=== PATIENT | male | born 1955 | race Caucasian/White ===

== ENCOUNTER 2019-01-25 13:29 | Inpatient (IN) ==
[2019-01-25 14:15] LABS: Basophils % 0.2 %; Hematocrit 50.3 % (37.5-50.1); Hemoglobin 15.6 g/dL (12.9-16.9); Immature Granulocytes % 0.9 % (0-4); Lymphocytes # 0.7 K/mcL (0.6-4.6); Lymphocytes % 5.8 %; Mean Corpuscular Hemoglobin 28.9 pg (28.0-33.3); Mean Corpuscular Volume 93.1 fL (83.0-100.0); Mean Platelet Volume 10.1 fL (9.4-12.4); Monocytes # 0.5 K/mcL (0.0-1.3); Monocytes % 4.3 %; Neutrophils # 11.1 K/mcL (1.6-8.9); Platelet Count 138 K/mcL (140-400); Red Cell Distribution Width 17.1 % (11.5-14.5); Segmented Neutrophils % 88.8 %; White Blood Count 12.5 K/mcL (4.3-11.1)
[2019-01-25] MEDS: 0.9 % Sodium Chloride 1,000 ML IVC SCH ×2 (14:45→16:33)
[2019-01-25] MEDS ORDERED: Isovue-370 500 ML BOTTLE IVP ONE ×2 (14:48→16:02)
[2019-01-25 14:51] LABS: Alanine Aminotransferase 7 Units/L (7-52); Albumin/Globulin Ratio 1.4 (1.1-2.2); Alkaline Phosphatase 42 Units/L (34-104); Aspartate Amino Transferase 12 Units/L (13-39); Bilirubin,Direct 0.1 mg/dL (0.0-0.2); Bilirubin,Indirect 0.5 mg/dL (0.0-1.2); Bilirubin,Total 0.6 mg/dL (0.3-1.0); Globulin 2.9 g/dL (2.4-3.5); Lipase 15 Units/L (11-82); Total Protein 6.9 g/dL (6.4-8.9)
[2019-01-25] MEDS ORDERED: Piperacillin/Tazobactam 3.375 GM in Water for inj. (sterile) 20 ML IVP ONE (14:54)
--- NOTE | 2019-01-25 14:54 | Emergency Department Note ---
Disposition Clinical Impression: Abdominal pain Qualifiers: Abdominal location: generalized Qualified Code(s): R10.84 - Generalized abdominal pain Sepsis Qualifiers: Sepsis type: sepsis due to unspecified organism Qualified Code(s): A41.9 - Sepsis, unspecified organism Disposition: Still a Patient Condition: Fair Referrals: KirstenmarinaUriel [Primary Care Provider] - Time of Disposition: 14:55 General Adult HPI - General Chief complaint: ED Abdominal Pain Stated complaint: ABD pain Time Seen by Provider: 01/25/19 13:45 Source: patient Limitations: no limitations Nursing Notes Reviewed: Yes Vital Signs Reviewed: Yes - History of Present Illness HPI Narrative: Attestation note I examined this patient and my medical decision-making was reviewed with the Resident Physician/PLANNING ADVISOR/PA. I agree with the documented findings, disposition and treatment plan as described except to the extent set forth below Patient seen with emergency medicine resident Dr. BRAVO SIMON, please see copy of his note for details of this patient encounter Briefly 63-year-old male is on testosterone for weight loss comes in with approximately 1 month of lower abdominal and leg pain and redness patient has a obvious cellulitis of his right lower extremity which was circumscribed marker he also has abdominal pain in the lower abdominal quadrants left and right lower some guarding but no rebound issue inspection of the perineum does not show any obvious Yunior's gangrene. Patient will get abdominal pelvic CT scan of the abdomen and pelvis along with the deep tissues of the bilateral thighs and lower extremities to rule out deep tissue infection gas necrotizing fasciitis and her clots. Patient will also get a Doppler of his right lower extremity. He did meet sepsis criteria he was febrile at 11.5 tachycardic at 114 and hypotensive 96/61 however after 2 L normal saline he responded quickly to 120/66 and his pulse rates down to 106. Patient getting screening labs blood cultures urine cultures regardless of the results in with a mandate transfer patient will be admitted for at the minimum cellulitis with systemic signs and symptoms #2 sepsis. Providing 45 minutes critical care service for this patient. Disposition pending. Patient will be getting an IV dose after cultures vancomycin and Zosyn Pain Scale: 9 - Related Data Allergies Allergy/AdvReac Type Severity Reaction Status Date / Time nicotine [From Nicoderm CQ] AdvReac See Verified 01/25/19 13:42 Comments oxycodone [From Percocet] AdvReac Hives Verified 01/25/19 13:42 Past Medical History - Past Medical History Medical history: Reports: other Psychiatric history: Reports: no psych history - Social History Smoking Status: Current every day smoker Smokeless Tobacco Status: No Alcohol use: Reports: none Drug use: Reports: none Physical Exam - General Limitations: no limitations General appearance: alert, in distress Course Vital Signs Temperature 101.8 F H 01/25/19 13:35 Pulse Rate 114 01/25/19 13:35 Respiratory Rate 18 01/25/19 13:35 Blood Pressure 96/61 01/25/19 13:35 O2 Sat by Pulse Oximetry 96 01/25/19 13:35 Temperature 101.8 F H 01/25/19 14:13 Pulse Rate 106 01/25/19 14:13 Respiratory Rate 18 01/25/19 13:35 Blood Pressure 120/66 01/25/19 14:13 O2 Sat by Pulse Oximetry 96 01/25/19 14:13 Oxygen Delivery Oxygen Delivery Room Air Medical Decision Making - Lab Data Result diagrams: 01/25/19 13:56 Lab Results 01/25/19 01/25/19 Range/Units 13:56 13:56 WBC 12.5 H (4.3-11.1) K/mcL RBC 5.40 (4.19-5.50) M/mcL Hgb 15.6 (12.9-16.9) g/dL Hct 50.3 H (37.5-50.1) % MCV 93.1 (83.0-100.0) fL MCH 28.9 (28.0-33.3) pg MCHC 31.0 L (31.6-35.5) g/dL RDW 17.1 H (11.5-14.5) % Plt Count 138 L (140-400) K/mcL MPV 10.1 (9.4-12.4) fL Immature Gran % 0.9 (0-4) % Seg Neutrophils % 88.8 % Lymphocytes % 5.8 % Monocytes % 4.3 % Eosinophils % 0.0 % Basophils % 0.2 % Neutrophils # 11.1 H (1.6-8.9) K/mcL Lymphocytes # 0.7 (0.6-4.6) K/mcL Monocytes # 0.5 (0.0-1.3) K/mcL Eosinophils # 0.0 (0.0-0.6) K/mcL Basophils # 0.0 (0.0-0.2) K/mcL Total Bilirubin 0.6 (0.3-1.0) mg/dL Direct Bilirubin 0.1 (0.0-0.2) mg/dL Indirect Bilirubin 0.5 (0.0-1.2) mg/dL AST 12 L (13-39) Units/L ALT 7 (7-52) Units/L Alkaline Phosphatase 42 (34-104) Units/L Serum Total Protein 6.9 (6.4-8.9) g/dL Albumin 4.0 (3.5-5.7) g/dL Globulin 2.9 (2.4-3.5) g/dL Albumin/Globulin Ratio 1.4 (1.1-2.2) Lipase 15 (11-82) Units/L
[2019-01-25] MEDS ORDERED: 0.9 % Sodium Chloride 1,000 ML IVC ONE (15:44)
--- NOTE | 2019-01-25 15:45 | Emergency Department Note ---
Disposition Clinical Impression: Abdominal pain Qualifiers: Abdominal location: generalized Qualified Code(s): R10.84 - Generalized abdominal pain Sepsis Qualifiers: Sepsis type: sepsis due to unspecified organism Qualified Code(s): A41.9 - Sepsis, unspecified organism Cellulitis Qualifiers: Site of cellulitis: extremity Site of cellulitis of extremity: lower extremity Laterality: right Qualified Code(s): L03.115 - Cellulitis of right lower limb Disposition: Still a Patient Condition: Fair Referrals: Uriel Gutiérrez [Primary Care Provider] - Forms: ED Satisfaction Letter, Work/School Release Time of Disposition: 16:28 General Adult HPI - General Chief complaint: ED Abdominal Pain Stated complaint: ABD pain Time Seen by Provider: 01/25/19 13:45 Source: patient Mode of arrival: ambulatory Limitations: no limitations Nursing Notes Reviewed: Yes Vital Signs Reviewed: Yes - History of Present Illness HPI Narrative: Patient is a 63-year-old male with a past medical history of Klinefelter's Syndrome, AAA, DDD PORFIRIO, bipolar manic depressive disorder, and smoking presents to the ED for evaluation of right thigh and abdominal pain. Patient states that the lower leg pain has been going on over the past month but is acutely worse today he states he is also having pain in his lower abdomen that is aching severe pain. He states his right thigh pain is sharp and stabbing like and worse with movement or any pressure on the leg. He has stockings on which he states he uses for bilateral lower extremity swelling. Denies fevers or chills. Denies recent injury to the lower leg. Denies numbness. Pain Scale: 9 - Related Data Home Medications Medication Instructions Recorded Confirmed Cyclobenzaprine [Flexeril] 10 mg PO HS PRN 01/25/19 01/25/19 Divalproex (12 HR) [Depakote (12 500 mg PO BID 01/25/19 01/25/19 HR)] Lisinopril [Zestril] 10 mg PO DAILY 01/25/19 01/25/19 Simvastatin [Zocor] 40 mg PO HS 01/25/19 01/25/19 Testosterone Cypionate 60 mg IM Q14D 01/25/19 01/25/19 [Depo-Testosterone] Allergies Allergy/AdvReac Type Severity Reaction Status Date / Time [facility] Adv[facility]ac See Verified 01/25/19 13:42 Comments oxycodone [From Percocet] AdvReac Hives Verified 01/25/19 13:42 All systems ED: reviewed and negative except as stated. Review of Systems: As Per HPI Constitutional: Denies: fever, chills Cardiovascular: Denies: chest pain, palpitations, dyspnea on exertion Respiratory: Denies: cough, dyspnea, wheezes Gastrointestinal: Reports: abdominal pain. Denies: nausea, vomiting, diarrhea, constipation, hematemesis, melena, hematochezia Genitourinary: Denies: urgency, dysuria Musculoskeletal: Reports: myalgia. Denies: back pain, neck pain Integumentary: Denies: rash Neurological: Denies: headache, weakness, numbness Past Medical History - Past Medical History Attestation: Yes The following information was validated with the patient. Medical history: Reports: other Psychiatric history: Reports: bipolar - Social History Smoking Status: Current every day smoker Smokeless Tobacco Status: No Alcohol use: Reports: none Drug use: Reports: none Physical Exam - General Limitations: no limitations General appearance: alert, in distress - Head Head exam: atraumatic, normocephalic, normal inspection - Eye Eye exam: Present: normal appearance, PERRL, EOMI - ENT ENT exam: normal exam, normal oropharynx, mucous membranes dry - Neck Neck exam: Present: normal inspection, full ROM, trachea midline - Chest Chest inspection: Present: normal inspection, symmetric chest wall rise - Respiratory Respiratory exam: Present: normal lung sounds bilaterally. Absent: respiratory distress, wheezes - Cardiovascular Cardiovascular exam: Present: normal rhythm, tachycardia, normal heart sounds, +S1, +S2 - Abdominal Exam Abdominal exam: Present: soft, Non-Tender. Absent: tenderness, distention, guarding, rebound, rigidity - Extremities Exam Extremities exam: Present: full ROM, normal capillary refill, pedal edema (Bilateral 2+), other (tenderness in the right posterior thigh) - Back Exam Back exam: Present: normal inspection, full ROM. Absent: tenderness, CVA tenderness (R), CVA tenderness (L) - Neurological Exam Neurological exam: Present: alert, oriented X3 - Psychiatric Psychiatric exam: Present: normal affect, normal mood - Skin Skin exam: Present: warm, intact, erythema (of the RLE affecting the top of the [place] circumferentially to the ankle. Warm to touch. No induration, fluctuance or obvious drainage. ) Course Course Narrative: Patient is meeting criteria for SIRS on arrival with tachycardia as well as a fever. Cultures were ordered. The patient is with multiple complaints including right posterior thigh tenderness with palpation as well as obvious erythema encompassing the entire lower leg on the right side. He has edema bilaterally however he did have compression stockings on states that this is typical edema for him. He is somewhat of a poor historian states that his symptoms been going on for the past month however there acutely worse today. Concern at this time is for blood clot versus cellulitis versus deep soft tissue infection. Patient received IV fluids new be started on IV antibiotics including Zosyn and vancomycin. He will undergo CAT scan imaging of the abdomen and right lower extremity to evaluate for etiology for further cause of an infectious source. - Reevaluation(s) Reevaluation #1: Patient's labs reveal leukocytosis of 12.5. His lactic acid is 2.4. His ordered an additional liter of fluids. D-dimer was also elevated at 5488. His right lower extremity ultrasound for DVT was negative. Given this d-dimer elevation and his tachycardia he will undergo a CTA of the chest in combination with his CT of the abdomen, pelvis and right lower extremity with contrast. Patient is declining any medication for pain at this time. Time: 16:28 Vital Signs Temperature 101.8 F H 01/25/19 13:35 Pulse Rate 114 01/25/19 13:35 Respiratory Rate 18 01/25/19 13:35 Blood Pressure 96/61 01/25/19 13:35 O2 Sat by Pulse Oximetry 96 01/25/19 13:35 Temperature 101.8 F H 01/25/19 14:13 Pulse Rate 106 01/25/19 14:13 Respiratory Rate 18 01/25/19 13:35 Blood Pressure 120/66 01/25/19 14:13 O2 Sat by Pulse Oximetry 96 01/25/19 14:13 Oxygen Delivery Oxygen Delivery Room Air Medical Decision Making - Medical Records Medical records reviewed: Yes I reviewed the patient's medical records. - Lab Data Lab results reviewed: Yes I reviewed the patient's lab results. Result diagrams: 01/25/19 13:56 01/25/19 13:56 Lab Results 01/25/19 01/25/19 01/25/19 Range/Units 13:56 13:56 13:56 WBC 12.5 H (4.3-11.1) K/mcL RBC 5.40 (4.19-5.50) M/mcL Hgb 15.6 (12.9-16.9) g/dL Hct 50.3 H (37.5-50.1) % MCV 93.1 (83.0-100.0) fL MCH 28.9 (28.0-33.3) pg MCHC 31.0 L (31.6-35.5) g/dL RDW 17.1 H (11.5-14.5) % Plt Count 138 L (140-400) K/mcL MPV 10.1 (9.4-12.4) fL Immature Gran % 0.9 (0-4) % Seg Neutrophils % 88.8 % Lymphocytes % 5.8 % Monocytes % 4.3 % Eosinophils % 0.0 % Basophils % 0.2 % Neutrophils # 11.1 H (1.6-8.9) K/mcL Lymphocytes # 0.7 (0.6-4.6) K/mcL Monocytes # 0.5 (0.0-1.3) K/mcL Eosinophils # 0.0 (0.0-0.6) K/mcL Basophils # 0.0 (0.0-0.2) K/mcL D-Dimer (0-500) ng/mLFEU Sodium 138 (136-145) mEq/L Potassium 3.7 (3.5-5.1) mEq/L Chloride 103 (98-107) mEq/L Carbon Dioxide 25 (23-29) mEq/L BUN 18 (8-23) mg/dL Creatinine 0.81 (0.70-1.30) mg/dL Est GFR ( Amer) > 60 (> 60) Est GFR (Non-Af Amer) > 60 (> 60) BUN/Creatinine Ratio 22 (6-26) Glucose 98 (70-105) mg/dL Calculated Osmolality 288 (280-300) Lactic Acid 2.4 H (0.5-2.2) mmol/L Calcium 9.0 (8.6-10.3) mg/dL Total Bilirubin 0.6 (0.3-1.0) mg/dL Direct Bilirubin 0.1 (0.0-0.2) mg/dL Indirect Bilirubin 0.5 (0.0-1.2) mg/dL AST 12 L (13-39) Units/L ALT 7 (7-52) Units/L Alkaline Phosphatase 42 (34-104) Units/L Troponin I < 0.03 (< 0.04) ng/mL Serum Total Protein 6.9 (6.4-8.9) g/dL Albumin 4.0 (3.5-5.7) g/dL Globulin 2.9 (2.4-3.5) g/dL Albumin/Globulin Ratio 1.4 (1.1-2.2) Lipase 15 (11-82) Units/L 01/25/19 Range/Units 13:56 WBC (4.3-11.1) K/mcL RBC (4.19-5.50) M/mcL Hgb (12.9-16.9) g/dL Hct (37.5-50.1) % MCV (83.0-100.0) fL MCH (28.0-33.3) pg MCHC (31.6-35.5) g/dL RDW (11.5-14.5) % Plt Count (140-400) K/mcL MPV (9.4-12.4) fL Immature Gran % (0-4) % Seg Neutrophils % % Lymphocytes % % Monocytes % % Eosinophils % % Basophils % % Neutrophils # (1.6-8.9) K/mcL Lymphocytes # (0.6-4.6) K/mcL Monocytes # (0.0-1.3) K/mcL Eosinophils # (0.0-0.6) K/mcL Basophils # (0.0-0.2) K/mcL D-Dimer 5488 H (0-500) ng/mLFEU Sodium (136-145) mEq/L Potassium (3.5-5.1) mEq/L Chloride (98-107) mEq/L Carbon Dioxide (23-29) mEq/L BUN (8-23) mg/dL Creatinine (0.70-1.30) mg/dL Est GFR ( Amer) (> 60) Est GFR (Non-Af Amer) (> 60) BUN/Creatinine Ratio (6-26) Glucose (70-105) mg/dL Calculated Osmolality (280-300) Lactic Acid (0.5-2.2) mmol/L Calcium (8.6-10.3) mg/dL Total Bilirubin (0.3-1.0) mg/dL Direct Bilirubin (0.0-0.2) mg/dL Indirect Bilirubin (0.0-1.2) mg/dL AST (13-39) Units/L ALT (7-52) Units/L Alkaline Phosphatase (34-104) Units/L Troponin I (< 0.04) ng/mL Serum Total Protein (6.4-8.9) g/dL Albumin (3.5-5.7) g/dL Globulin (2.4-3.5) g/dL Albumin/Globulin Ratio (1.1-2.2) Lipase (11-82) Units/L - Radiology Data Radiology results reviewed: Yes I reviewed the patient's radiology results. Chest X-Ray 01/25/19 13:49 IMPRESSION: No acute cardiopulmonary findings. D/ / Keisha Gordon MD / Keisha Gordon MD Interpreting Provider: Keisha Gordon MD S.B.A.R. - S.B.A.R. Situation: Demographics, MOA Background: Presenting Complaint, Relevant PMH, Meds, & Allergies Assessment: Vital Signs, Course and respsone to treatment, Exam Concerns, Patient/Family Expectation, Pertinant Lab Results, Outstanding Labs Recommendation: Barrier(s) to disposition (Pending CT scan of the abdomen, and RLE), Recommendation based on pending studies, treatments, or consults S.B.A.R. Report Given to: Dr. Stewart and Dr. Eisenberg S.B.A.Payton Repor Time: 17:09
[2019-01-25 16:30] LABS: BUN/Creatinine Ratio 22 (6-26); Blood Urea Nitrogen 18 mg/dL (8-23); Carbon Dioxide 25 mEq/L (23-29); Chloride 103 mEq/L (98-107); Glucose 98 mg/dL (70-105); Osmolality,Calculated 288 (280-300); Potassium 3.7 mEq/L (3.5-5.1); Sodium 138 mEq/L (136-145); eGFR For African Americans > 60 (> 60); eGFR For Non-African Americans > 60 (> 60)
[2019-01-25 16:31] LABS: Troponin I < 0.03 ng/mL (< 0.04)
[2019-01-25 17:30] LABS: Bilirubin,Urine Negative (Negative); Blood,Urine Negative (Negative); Clarity,Urine Clear (Clear); Color,Urine Yellow (Yellow); Glucose,Urine (UA) Normal (Normal); Ketones,Urine Trace mg/dL (Negative); Leukocyte Esterase,Urine Trace (Negative); Nitrite,Urine Negative (Negative); Protein,Urine Negative (Neg-Trace); Specific Gravity,Urine 1.022 (1.010-1.025); Urobilinogen,Urine Normal (Normal)
[2019-01-25 17:32] LABS: Bacteria,Urine None Seen per hpf (None-Few); Hyaline Casts,Urine None Seen per lpf (None-Few); RBC,Urine 0-3 per hpf (0-3); Squamous Epithelial Cell,Urine Moderate per lpf (None-Few); WBC,Urine 0-3 per hpf (0-3)
--- NOTE | 2019-01-25 17:32 | Internal Med History&Physical ---
Date of Encounter: 01/25/19 Time of Encounter: 17:30 Internal Medicine - H&P: HPI Chief complaint: Cellulitis Admitted From: Emergency Dept History of present illness: Ketan Whitman is a 63 M w hx Klinefelter's Syndrome, AAA, DDD, PORFIRIO, bipolar disorder, smoker, who presents with leg pain. Pain is in R foot, leg, and thigh, and radiates up into abdomen. Pt states his legs are always red, but states they have elli discoloration but are never bright red. Pt usually wears compression stockings for chronic swelling and has not seen his legs in a few days, but says that in the last few days he has noticed that his RLE has become more uncomfortable. Today, he noticed cramping and more intense pain, and they looked at his leg and it had significant erythema on ankle going up to knee with some dependent redness behind the knee and distal posterior thigh. He denies fevers until today. States he has not had infection in his legs like this before and they are concerned that it could be a blood clot. In the ED, vitals T 102, HR 110s, SBP 90s. Labs show WBC 13, Plt 140, lactate 2.4. D-dimer 5500 for which venous duplex of RLE prelim is negative, and CTPE obtained which was negative. CT of RLE shows soft tissue swelling and edema but no fluid collections, although there is reactive inguinal lymphadenopathy. CT abd unremarkable for acute process but does show AAA 5.2 x 4.6 cm. Blood cultures drawn, pt given doses of vanc and zosyn, given NS 2L bolus, and admitted. Past medical, surgical, social, and family histories reviewed and updated as below, with addition to family history of no known infectious history or history of DVT/PEs or thrombophilias. Past Med Surg Social Fam HX - Past Medical History Medical history: other Additional medical history: AAA, DDD Psychiatric history: bipolar - Past Surgical History Additional surgical history: back sx - Social History Smoking Status: Current every day smoker Smokeless Tobacco Status: No Alcohol use: none Drug use: none Internal Medicine - H&P: Meds Cyclobenzaprine [Flexeril] 10 mg PO HS PRN 01/25/19 [History] Divalproex (12 HR) [Depakote (12 HR)] 500 mg PO BID 01/25/19 [History] Lisinopril [Zestril] 10 mg PO DAILY 01/25/19 [History] Simvastatin [Zocor] 40 mg PO HS 01/25/19 [History] Testosterone Cypionate [Depo-Testosterone] 60 mg IM Q14D 01/25/19 [History] Allergy/AdvReac Type Severity Reaction Status Date / Time nicotine [From Nicoderm CQ] AdvReac See Verified 01/25/19 13:42 Comments oxycodone [From Percocet] AdvReac Hives Verified 01/25/19 13:42 All Systems PM: A 10-system review of systems was performed and is negative for pertinent findings except as documented above in the HPI. - Constitutional Vitals: Temp Pulse Resp BP Pulse Ox 101.8 F H 106 18 120/66 96 01/25/19 14:13 01/25/19 14:13 01/25/19 13:35 01/25/19 14:13 01/25/19 14:13 Exam: General: AAOx3, good eye contact, not in distress and nontoxic but diaphoretic and uncomfortable appearing Head: Atraumatic, normocephalic. Face symmetric Eyes: EOMI, sclerae anicteric ENT: Mucous membranes moist. Normal oral mucosa. Trachea midline. Thoracic: No visible chest wall deformities. Normal breath sounds b/l, no wheezing or crackles Cardio: Normal S1 and S2, regular rate and rhythm, no murmurs. Abdomen: Soft, nontender, nondistended, obese Extremities: Warm, well perfused. DP pulses 2+ b/l. Bilateral pitting edema R>L Skin: erythema and warmth tracking RLE from ankle to posterior distal thigh Neuro: Awake, fully oriented. Good memory, concentration, attention. Speech fluent. CN II-XII grossly intact. Strength 5/5 in b/l UE and LE Internal Med - H&P Results - Labs CBC & Chem 7: 01/25/19 13:56 01/25/19 13:56 Labs: Short CBC 01/25/19 Range/Units 13:56 WBC 12.5 H (4.3-11.1) K/mcL Hgb 15.6 (12.9-16.9) g/dL Hct 50.3 H (37.5-50.1) % Plt Count 138 L (140-400) K/mcL Neutrophils # 11.1 H (1.6-8.9) K/mcL BMP 01/25/19 13:56 Sodium 138 Potassium 3.7 Chloride 103 Carbon Dioxide 25 BUN 18 Creatinine 0.81 Glucose 98 Calcium 9.0 Cardiac Enzymes 01/25/19 Range/Units 13:56 Troponin I < 0.03 (< 0.04) ng/mL Liver Function 01/25/19 Range/Units 13:56 Total Bilirubin 0.6 (0.3-1.0) mg/dL Direct Bilirubin 0.1 (0.0-0.2) mg/dL AST 12 L (13-39) Units/L ALT 7 (7-52) Units/L Alkaline Phosphatase 42 (34-104) Units/L Albumin 4.0 (3.5-5.7) g/dL - Impressions ITS Impressions Chest X-Ray 01/25/19 13:49 IMPRESSION: No acute cardiopulmonary findings. D/ / Keisha Gordon MD / Keisha Gordon MD Interpreting Provider: Keisha Gordon MD Chest CTA 01/25/19 14:48 IMPRESSION: No evidence of pulmonary embolism or aortic dissection. Mild bronchial wall thickening, which raise the possibility of acute and/or chronic bronchitis or reactive airways disease. Otherwise, no acute abnormality detected. D/ / Raul Sutton MD / Raul Sutton MD Interpreting Provider: Raul Sutton MD Lower Extremity CT 01/25/19 14:48 IMPRESSION: Right lower extremity soft tissue swelling and subcutaneous edema. No focal drainable fluid collection. Prominent right groin lymph nodes are suspected to be reactive. D/ / 01/25/2019 17:20:24 Emil Prince MD / shobha Interpreting Provider: Emil Prince MD Abdomen/Pelvis CT 01/25/19 14:51 IMPRESSION: Subcutaneous soft tissue stranding seen in the anterior right thigh extending into the right inguinal region, etiology unclear. Correlate with clinical evidence of cellulitis. Mild perinephric fat stranding bilaterally, probably age related but correlate with any clinical evidence of urinary tract infection. Abdominal aortic aneurysm, increased in size, now measuring 5.2 x 4.6 cm. Follow-up vascular surgical consultation is recommended, if that has not already been performed. Surveillance every 6 months is recommended as well. See complete recommendations below. RECOMMENDATIONS: Managing Abdominal Aortic Aneurysms 4.5-5.4 cm: Every 6 months. Recommend vascular consultation. Reference: J Vasc Surg. 2008;50(4 Suppl):S2-49 D/ / Raul Sutton MD / Raul Sutton MD Interpreting Provider: Raul Sutton MD - Summary of Assessment and Plan Summary of Assessment and Plan: Ketan Whitman is a 63 M w hx Klinefelter's Syndrome, AAA, DDD PORFIRIO, bipolar manic depressive disorder, and smoking, who p/w leg pain, erythema, SIRS 3/4, lactate 2.4, concerning for cellulitis causing severe sepsis. Cellulitis: R leg and thigh, CT w/o abscess or osteo, and exam without crepitus or pain out of proportion, and venous duplex negative - empiric zosyn and vanc Severe sepsis: SIRS 3/4 (not tachypneic), suspected infection as above, lactate elevated to 2.4. Rec'd NS 2L bolus in ED. - BCx x2 pending - repeat lactate - fluid boluses prn - empiric abx as above AAA: interval growth from 3.7x3.8 in '15 to 5.2x4.6 today - VascSurg consult Smoker: nicotine replacement offered, cessation advised PORFIRIO: cpap HTN: holding lisinopril 10 HLD: home statin Chronic pain: holding flexeril 10 BPD: home depakote 500 bid PPx: lovenox Activity: ambulate FEN: regular, MIVF LR@125 Lines: PIV Consults: VascSurg Code: Full Dispo: patient requires inpatient eval and management at this time. Anticipate 2-3 days. Will be homegoing
[2019-01-25] MEDS ORDERED: Ondansetron 4 MG/2 ML VIAL IVP PRN (17:36)
--- NOTE | 2019-01-25 17:38 | Emergency Department Note ---
Disposition Clinical Impression: Lymphangitis, AAA (abdominal aortic aneurysm) without rupture Abdominal pain Qualifiers: Abdominal location: generalized Qualified Code(s): R10.84 - Generalized abdominal pain Sepsis Qualifiers: Sepsis type: sepsis due to unspecified organism Qualified Code(s): A41.9 - Sepsis, unspecified organism Cellulitis Qualifiers: Site of cellulitis: extremity Site of cellulitis of extremity: lower extremity Laterality: right Qualified Code(s): L03.115 - Cellulitis of right lower limb Disposition: Admitted As Inpatient Condition: Fair Referrals: Uriel Gutiérrez [Primary Care Provider] - Forms: ED Satisfaction Letter, Work/School Release Time of Disposition: 17:34 General Adult HPI - General Chief complaint: ED Abdominal Pain Stated complaint: ABD pain Time Seen by Provider: 01/25/19 13:45 Source: patient Mode of arrival: ambulatory Limitations: no limitations - History of Present Illness Pain Scale: 9 - Related Data Home Medications Medication Instructions Recorded Confirmed Cyclobenzaprine [Flexeril] 10 mg PO HS PRN 01/25/19 01/25/19 Divalproex (12 HR) [Depakote (12 500 mg PO BID 01/25/19 01/25/19 HR)] Lisinopril [Zestril] 10 mg PO DAILY 01/25/19 01/25/19 Simvastatin [Zocor] 40 mg PO HS 01/25/19 01/25/19 Testosterone Cypionate 60 mg IM Q14D 01/25/19 01/25/19 [Depo-Testosterone] Allergies Allergy/AdvReac Type Severity Reaction Status Date / Time nicotine [From Nicoderm CQ] AdvReac See Verified 01/25/19 13:42 Comments oxycodone [From Percocet] AdvReac Hives Verified 01/25/19 13:42 Constitutional: Denies: fever, chills Cardiovascular: Denies: chest pain, palpitations, dyspnea on exertion Respiratory: Denies: cough, dyspnea, wheezes Gastrointestinal: Reports: abdominal pain. Denies: nausea, vomiting, diarrhea, constipation, hematemesis, melena, hematochezia Genitourinary: Denies: urgency, dysuria Musculoskeletal: Reports: myalgia. Denies: back pain, neck pain Integumentary: Denies: rash Neurological: Denies: headache, weakness, numbness Past Medical History - Past Medical History Medical history: Reports: other Psychiatric history: Reports: bipolar - Social History Smoking Status: Current every day smoker Smokeless Tobacco Status: No Alcohol use: Reports: none Drug use: Reports: none Physical Exam - General Limitations: no limitations General appearance: alert, in distress Course Vital Signs Temperature 101.8 F H 01/25/19 13:35 Pulse Rate 114 01/25/19 13:35 Respiratory Rate 18 01/25/19 13:35 Blood Pressure 96/61 01/25/19 13:35 O2 Sat by Pulse Oximetry 96 01/25/19 13:35 Temperature 101.8 F H 01/25/19 14:13 Pulse Rate 106 01/25/19 14:13 Respiratory Rate 18 01/25/19 13:35 Blood Pressure 120/66 01/25/19 14:13 O2 Sat by Pulse Oximetry 96 01/25/19 14:13 Oxygen Delivery Oxygen Delivery Room Air Medical Decision Making - Lab Data Result diagrams: 01/25/19 13:56 01/25/19 13:56 Lab Results 01/25/19 01/25/19 01/25/19 Range/Units 13:56 13:56 13:56 WBC 12.5 H (4.3-11.1) K/mcL RBC 5.40 (4.19-5.50) M/mcL Hgb 15.6 (12.9-16.9) g/dL Hct 50.3 H (37.5-50.1) % MCV 93.1 (83.0-100.0) fL MCH 28.9 (28.0-33.3) pg MCHC 31.0 L (31.6-35.5) g/dL RDW 17.1 H (11.5-14.5) % Plt Count 138 L (140-400) K/mcL MPV 10.1 (9.4-12.4) fL Immature Gran % 0.9 (0-4) % Seg Neutrophils % 88.8 % Lymphocytes % 5.8 % Monocytes % 4.3 % Eosinophils % 0.0 % Basophils % 0.2 % Neutrophils # 11.1 H (1.6-8.9) K/mcL Lymphocytes # 0.7 (0.6-4.6) K/mcL Monocytes # 0.5 (0.0-1.3) K/mcL Eosinophils # 0.0 (0.0-0.6) K/mcL Basophils # 0.0 (0.0-0.2) K/mcL D-Dimer (0-500) ng/mLFEU Sodium 138 (136-145) mEq/L Potassium 3.7 (3.5-5.1) mEq/L Chloride 103 (98-107) mEq/L Carbon Dioxide 25 (23-29) mEq/L BUN 18 (8-23) mg/dL Creatinine 0.81 (0.70-1.30) mg/dL Est GFR ( Amer) > 60 (> 60) Est GFR (Non-Af Amer) > 60 (> 60) BUN/Creatinine Ratio 22 (6-26) Glucose 98 (70-105) mg/dL Calculated Osmolality 288 (280-300) Lactic Acid 2.4 H (0.5-2.2) mmol/L Calcium 9.0 (8.6-10.3) mg/dL Total Bilirubin 0.6 (0.3-1.0) mg/dL Direct Bilirubin 0.1 (0.0-0.2) mg/dL Indirect Bilirubin 0.5 (0.0-1.2) mg/dL AST 12 L (13-39) Units/L ALT 7 (7-52) Units/L Alkaline Phosphatase 42 (34-104) Units/L Troponin I < 0.03 (< 0.04) ng/mL Serum Total Protein 6.9 (6.4-8.9) g/dL Albumin 4.0 (3.5-5.7) g/dL Globulin 2.9 (2.4-3.5) g/dL Albumin/Globulin Ratio 1.4 (1.1-2.2) Lipase 15 (11-82) Units/L 01/25/19 Range/Units 13:56 WBC (4.3-11.1) K/mcL RBC (4.19-5.50) M/mcL Hgb (12.9-16.9) g/dL Hct (37.5-50.1) % MCV (83.0-100.0) fL MCH (28.0-33.3) pg MCHC (31.6-35.5) g/dL RDW (11.5-14.5) % Plt Count (140-400) K/mcL MPV (9.4-12.4) fL Immature Gran % (0-4) % Seg Neutrophils % % Lymphocytes % % Monocytes % % Eosinophils % % Basophils % % Neutrophils # (1.6-8.9) K/mcL Lymphocytes # (0.6-4.6) K/mcL Monocytes # (0.0-1.3) K/mcL Eosinophils # (0.0-0.6) K/mcL Basophils # (0.0-0.2) K/mcL D-Dimer 5488 H (0-500) ng/mLFEU Sodium (136-145) mEq/L Potassium (3.5-5.1) mEq/L Chloride (98-107) mEq/L Carbon Dioxide (23-29) mEq/L BUN (8-23) mg/dL Creatinine (0.70-1.30) mg/dL Est GFR ( Amer) (> 60) Est GFR (Non-Af Amer) (> 60) BUN/Creatinine Ratio (6-26) Glucose (70-105) mg/dL Calculated Osmolality (280-300) Lactic Acid (0.5-2.2) mmol/L Calcium (8.6-10.3) mg/dL Total Bilirubin (0.3-1.0) mg/dL Direct Bilirubin (0.0-0.2) mg/dL Indirect Bilirubin (0.0-1.2) mg/dL AST (13-39) Units/L ALT (7-52) Units/L Alkaline Phosphatase (34-104) Units/L Troponin I (< 0.04) ng/mL Serum Total Protein (6.4-8.9) g/dL Albumin (3.5-5.7) g/dL Globulin (2.4-3.5) g/dL Albumin/Globulin Ratio (1.1-2.2) Lipase (11-82) Units/L Attestation Statement - Attestation Attestation: The patient signed out to me pending CT scans. CT scan of the chest showed no pulmonary embolus and CT scan abdomen and pelvis showed no acute abdominal process but interval increase in size of documented prior AAA, up to 5.2 cm from 4.6 cm, but without evidence of rupture or leak. CT scan of the lower extremity revealed no evidence of deep tissue infection/necrotizing infection, no subcutaneous gas, findings consistent with cellulitis with some reactive lymphadenopathy. Antibiotics and oriented been given, patient remained hemodynamically improving with decreased heart rate increased blood pressure, and was admitted to the hospital for further evaluation and management of cellulitis, lymphangitis, Sirs sepsis.
--- NOTE | 2019-01-25 17:40 | Emergency Department Note ---
START Narrative - START START: Patient was assigned to me in sign out. Patient has extensive cellulitis of the right lower extremity. Incidental finding of an enlarging abdominal aortic aneurysm. Patient was told about this. Admitted patient to hospitalist for further management. Patient hemodynamically stable at that time. <Abraham Stewart - Last Filed: 01/25/19 17:39> - START START: I have seen this patient with the resident physician, I have personally evaluated this patient. I had reviewed the chart and document dictation by the resident physician and aM in agreement with the information documented by the resident physician. Please see documentation by the resident physician for complete chart including past medical history, family medical history, review of systems, current history and physical and laboratory and imaging studies. I was present for all procedures, provided direct supervision for all procedures, was present for the entirety of all procedures and provided direct guidance during the procedures. Please see documentation by the resident physician for any procedures performed. I have reviewed all interpretations of EKGs, and reviewed all EKGs performed on patient's as well. I have also reviewed reports of imaging as provided by radiology. <Anthony Eisenberg - Last Filed: 01/27/19 14:52>
[2019-01-25] MEDS: Ringers Solution, Lactated 1,000 ML IVC SCH (21:07)
[2019-01-25] MEDS: Divalproex (12 HR) 500 MG TABLET PO SCH (21:08)
[2019-01-25] MEDS: Melatonin 3 MG TABLET PO PRN (21:25)
[2019-01-25] MEDS: Nicotine 14 MG PATCH.TD24 TD SCH (21:25)
[2019-01-26] MEDS: Piperacillin/Tazobactam 3.375 GM in 0.9 % Sodium Chloride Mini Bag 100 ML IVPB SCH ×3 (00:31→18:05)
[2019-01-26] MEDS: Acetaminophen 325 MG TABLET PO PRN ×3 (03:01→18:05)
[2019-01-26] MEDS: *HR* Enoxaparin 40 MG/0.4 ML SYRINGE SQ SCH (05:11)
[2019-01-26] MEDS: Ringers Solution, Lactated 1,000 ML IVC SCH (05:11)
[2019-01-26 06:01] LABS: Hematocrit 41.7 % (37.5-50.1); Hemoglobin 13.2 g/dL (12.9-16.9); Mean Corpuscular HGB Conc 31.7 g/dL (31.6-35.5); Mean Corpuscular Hemoglobin 29.3 pg (28.0-33.3); Mean Corpuscular Volume 92.7 fL (83.0-100.0); Mean Platelet Volume 10.9 fL (9.4-12.4); Platelet Count 117 K/mcL (140-400); Red Cell Distribution Width 17.2 % (11.5-14.5); White Blood Count 19.9 K/mcL (4.3-11.1)
[2019-01-26 06:20] LABS: BUN/Creatinine Ratio 22 (6-26); Blood Urea Nitrogen 18 mg/dL (8-23); Calcium 8.5 mg/dL (8.6-10.3); Carbon Dioxide 25 mEq/L (23-29); Chloride 103 mEq/L (98-107); Glucose 118 mg/dL (70-105); Magnesium 1.7 mg/dL (1.6-2.6); Osmolality,Calculated 289 (280-300); Potassium 3.8 mEq/L (3.5-5.1); Sodium 138 mEq/L (136-145); eGFR For African Americans > 60 (> 60); eGFR For Non-African Americans > 60 (> 60)
--- NOTE | 2019-01-26 08:50 | Internal Med Progress Note ---
Hospitalist Progress Note - Encounter Date of Encounter: 01/26/19 Time of Encounter: 08:50 - Subjective Interval History: Patient lying comfortably in bed. He states that his right leg is still having the pain radiates up towards his groin. Patient otherwise feeling well. Patient states that his leg swelling is chronic and usually he wears stockings t o mitigate some of the symptoms. Patient had not noticed the change in color of his leg. Patient denies shortness of breath, chest pain, abdominal pain, fever, or chills. - Exam Vitals: Temp Pulse Resp BP Pulse Ox 98.7 F 70 16 104/66 94 01/26/19 06:40 01/26/19 06:40 01/26/19 06:40 01/26/19 06:40 01/26/19 06:40 Exam: General: AAOx3, good eye contact, not in distress and nontoxic but diaphoretic and uncomfortable appearing Head: Atraumatic, normocephalic. Face symmetric Eyes: EOMI, sclerae anicteric ENT: Mucous membranes moist. Normal oral mucosa. Trachea midline. Lungs: Normal breath sounds b/l, no wheezing or crackles Cardio: Normal S1 and S2, regular rate and rhythm, no murmurs. Abdomen: Soft, nontender, nondistended, obese Extremities: Warm, well perfused. DP pulses 2+ b/l. Bilateral pitting edema R>L Skin: erythema and warmth tracking RLE from ankle to posterior distal thigh with 1-2 cm increase in height from previous marking Neuro: Awake, fully oriented. Good memory, concentration, attention. Speech fluent. CN II-XII grossly intact. Strength 5/5 in b/l UE and LE - Summary of Assessment and Plan Summary of Assessment and Plan: Ketan Whitman is a 63 M w hx Klinefelter's Syndrome, AAA, DDD PORFIRIO, bipolar manic depressive disorder, and smoking, who p/w leg pain, erythema, SIRS 3/4, lactate 2.4, concerning for cellulitis causing severe sepsis. Cellulitis: R leg and thigh, CT w/o abscess or osteo, and exam without crepitus or pain out of proportion, and venous duplex negative - empiric zosyn and vanc with projected stop date of 02/04 Severe sepsis: SIRS 3/4 (not tachypneic), suspected infection as above, lactate elevated to 2.4. Rec'd NS 2L bolus in ED. - BCx x2 pending - repeat lactate holding at 2.4 - fluid boluses prn - empiric abx as above AAA: interval growth from 3.7x3.8 in to 5.2x4.6 today - VascSurg consult Smoker: nicotine replacement offered, cessation advised PORFIRIO: cpap HTN: holding lisinopril 10 HLD: home statin Chronic pain: Tramadol given. holding flexeril 10 BPD: home depakote 500 bid PPx: lovenox Activity: ambulate FEN: regular, MIVF LR@125 Lines: PIV Consults: VascSurg Code: Full Dispo: patient requires inpatient eval and management at this time. Anticipate 2-3 days. Will be homegoing - Time Spent with Patient Total time spent is greater than 50% in coordination of care (as documented) at patient's floor/unit and/or counseling patient: Internal Medicine: Result - Labs CBC & Chem 7: 01/26/19 05:20 01/26/19 05:20 Labs: Short CBC 01/25/19 01/26/19 Range/Units 13:56 05:20 WBC 12.5 H 19.9 H D (4.3-11.1) K/mcL Hgb 15.6 13.2 D (12.9-16.9) g/dL Hct 50.3 H 41.7 (37.5-50.1) % Plt Count 138 L 117 L (140-400) K/mcL Neutrophils # 11.1 H (1.6-8.9) K/mcL BMP 01/25/19 01/26/19 13:56 05:20 Sodium 138 138 Potassium 3.7 3.8 Chloride 103 103 Carbon Dioxide 25 25 BUN 18 18 Creatinine 0.81 0.81 Glucose 98 118 H Calcium 9.0 8.5 L Cardiac Enzymes 01/25/19 Range/Units 13:56 Troponin I < 0.03 (< 0.04) ng/mL Liver Function 01/25/19 Range/Units 13:56 Total Bilirubin 0.6 (0.3-1.0) mg/dL Direct Bilirubin 0.1 (0.0-0.2) mg/dL AST 12 L (13-39) Units/L ALT 7 (7-52) Units/L Alkaline Phosphatase 42 (34-104) Units/L Albumin 4.0 (3.5-5.7) g/dL Urine 01/25/19 Range/Units 16:39 Urine Color Yellow (Yellow) Urine Clarity Clear (Clear) Urine pH 5.0 (5.0-8.0) pH Units Ur Specific [place] 1.022 (1.010-1.025) Urine Protein Negative (Neg-Trace) mg/dL Urine Glucose (UA) Normal (Normal) mg/dL - ABG Interpretation ABG results: PT/INR, D-dimer 5488 ng/mLFEU (0-500) H 01/25/19 13:56 - Impressions Impressions Chest X-Ray 01/25/19 13:49 IMPRESSION: No acute cardiopulmonary findings. D/ / Keisha Gordon MD / Keisha Gordon MD Interpreting Provider: Keisha Gordon MD Chest CTA 01/25/19 14:48 IMPRESSION: No evidence of pulmonary embolism or aortic dissection. Mild bronchial wall thickening, which raise the possibility of acute and/or chronic bronchitis or reactive airways disease. Otherwise, no acute abnormality detected. D/ / Raul Sutton MD / Raul Sutton MD Interpreting Provider: Raul Sutton MD Lower Extremity CT 01/25/19 14:48 IMPRESSION: Right lower extremity soft tissue swelling and subcutaneous edema. No focal drainable fluid collection. Prominent right groin lymph nodes are suspected to be reactive. D/ / 01/25/2019 17:20:24 Emil Prince MD / shobha Interpreting Provider: Emil Prince MD Abdomen/Pelvis CT 01/25/19 14:51 IMPRESSION: Subcutaneous soft tissue stranding seen in the anterior right thigh extending into the right inguinal region, etiology unclear. Correlate with clinical evidence of cellulitis. Mild perinephric fat stranding bilaterally, probably age related but correlate with any clinical evidence of urinary tract infection. Abdominal aortic aneurysm, increased in size, now measuring 5.2 x 4.6 cm. Follow-up vascular surgical consultation is recommended, if that has not already been performed. Surveillance every 6 months is recommended as well. See complete recommendations below. RECOMMENDATIONS: Managing Abdominal Aortic Aneurysms 4.5-5.4 cm: Every 6 months. Recommend vascular consultation. Reference: J Vasc Surg. 2009 Apr;50(4 Suppl):S2-49 D/ / Raul Sutton MD / Raul Sutton MD Interpreting Provider: Raul Sutton MD Consult Discharge Plan - Plan Referrals: Uriel Gutiérrez [Primary Care Provider] -
[2019-01-26] MEDS: Divalproex (12 HR) 500 MG TABLET PO SCH (09:01)
[2019-01-26] MEDS: Nicotine 14 MG PATCH.TD24 TD SCH (09:03)
[2019-01-26] MEDS ORDERED: Nicotine 2 MG GUM BC PRN (09:39)
[2019-01-26] MEDS ORDERED: traMADol 50 MG TABLET PO ONE (09:42)
--- NOTE | 2019-01-26 12:04 | Electrocardiograph Report ---
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
[2019-01-26] MEDS ORDERED: 0.9 % Sodium Chloride 500 ML IV ONE (16:32)
--- NOTE | 2019-01-26 17:39 | Vascular/Endovasc Consult Note ---
Date of Encounter: 01/26/19 Time of Encounter: 17:15 Assessment and Plan (1) AAA (abdominal aortic aneurysm) without rupture Status: Acute The pathophysiology and natural history of abdominal aortic aneurysms was discussed with the patient and all questions were answered. The patient underwent a CT angiogram which revealed a nonruptured, 5.2 cm infrarenal abdominal aortic aneurysm. His aneurysm appears to be of acceptable anatomy for endograft placement. The patient follow up with vascular surgery as an outpatient for further surgical evaluation, planning and scheduling of his endograft repair. (2) Cellulitis Status: Acute The patient is developed an acute and severe right lower extremity cellulitis. He has no evidence of abscess. He is currently on intravenous antibiotics reports regression of the cellulitis. He will continue with intravenous antibiotic therapy until his cellulitis has dramatically improved. He will then be converted to oral antibiotics. Qualifiers: Site of cellulitis: extremity Site of cellulitis of extremity: lower extremity Laterality: right Qualified Code(s): L03.115 - Cellulitis of right lower limb (3) Klinefelter syndrome Status: Chronic - History of Present Illness Consult date: 01/26/19 Requesting physician: Christiano Castellon Consult reason: Abdominal aortic aneurysm Chief complaint: Abdominal aortic aneurysm History of present illness: Mr. Whitman is a 63 year old male Klinefelter's Syndrome, an abdominal aorta aneurysm and tobacco abuse. [facility] right foot, leg and thigh pain with pain radiating up to his abdomen. He was noted to have significant erythema on admission. He started on intravenous antibiotics. As per his evaluation underwent a CT scan which revealed increased size of his abdominal aortic aneurysm. Vascular surgery was counseled for further evaluation. Patient denies any abdominal, flank or back pain. Denies any chest pain or shortness of breath. It is important right leg pain and tenderness. He currently denies fevers or chills. He denies chest pain or shortness breath. Past Med Surg Social Fam HX - Past Medical History Medical history: other Additional medical history: AAA, DDD Psychiatric history: bipolar - Past Surgical History Additional surgical history: back sx x4 titanium rods in back - Social History Smoking Status: Current every day smoker Smokeless Tobacco Status: No Alcohol use: none Drug use: none - Family History Mother Living Status: Age at : 64 Cause of : cancer liver Father Living Status: Age at : 69 Cause of : CVA Medications and Allergies Cyclobenzaprine [Flexeril] 10 mg PO HS PRN 01/25/19 [History] Divalproex (12 HR) [Depakote (12 HR)] 500 mg PO BID 01/25/19 [History] Lisinopril [Zestril] 10 mg PO DAILY 01/25/19 [History] Melatonin 5 mg Tablet 10 mg PO HS 01/25/19 [History] Simvastatin [Zocor] 40 mg PO HS 01/25/19 [History] Testosterone Cypionate [Depo-Testosterone] 60 mg IM Q14D 01/25/19 [History] Ziprasidone HCl [Geodon] 20 mg PO HS 01/25/19 [History] Amoxicillin 875 mg PO BID #10 tablet 01/31/19 [Rx] Nicotine Gum [Nicorette gum] 2 mg BC Q2H PRN #30 gum 01/31/19 [Rx] Nicotine Patch [Nicoderm] 14 mg TD DAILY #30 patch.td24 01/31/19 [Rx] Allergy/AdvReac Type Severity Reaction Status Date / Time nicotine [From Nicoderm CQ] AdvReac See Verified 01/25/19 13:42 Comments oxycodone [From Percocet] AdvReac Hives Verified 01/25/19 13:42 All Systems Review: The remainder of the systems were reviewed and are negative - Constitutional Constitutional: fever(s) - Cardiovascular Cardiovascular: no chest pain at rest, no dyspnea at rest - Vascular Vascular: lower extremity swelling, lower extremity discoloration - Gastrointestinal Gastrointestinal: no abdominal pain, no constipation, no diarrhea - Musculoskeletal Musculoskeletal: no back pain - Integumentary Integumentary: erythema, swelling Exam Vital Signs, Last 4 Hours Temp Pulse Resp BP Pulse Ox 01/26/19 15:00 98.1 F 72 16 99/66 93 General: Present: Conversant, No Apparent Distress HEENT: Present: Pupils equal Neck: Absent: JVD, Lymphadenopathy, Left Carotid bruit, Right Carotid bruit Cardiac: Present: Reg Rate and Rhythm, Normal S1 and S2 Lungs: Present: Normal Breath Sounds, No Wheeze, Rales, Rhonchi Neuro: Present: Alert and responsive, No focal deficits noted, Motor nerves grossly intact, Sensory nerves grossly intact Abdomen: Present: Soft, Non-tender. Absent: Masses Vascular: Present: Normal capillary refill, Pulse, normal, Edema (Post edema in the lower extremity) Skin: Present: Other (Marcaine erythema with tenderness extending to the right knee, no crepitance, no fluctuance) Consult Discharge Plan - Plan Referrals: Uriel Gutiérrez [Primary Care Provider] - 02/01/19 3:15 pm Escobar Flores MD [Partnered Physician] - 02/28/19 1:00 pm (f/u in 1 month ) Prescriptions: Amoxicillin 875 mg PO BID #10 tablet Nicotine Patch [Nicoderm] 14 mg TD DAILY #30 patch.td24 Nicotine Gum [Nicorette gum] 2 mg BC Q2H PRN #30 gum PRN Reason: Nicotine Cravings
[2019-01-26] MEDS: Nicotine 21 MG PATCH.TD24 TD SCH (18:07)
[2019-01-26] MEDS: Sennosides/Docusate Sodium TABLET PO SCH (18:26)
[2019-01-27] MEDS: Ziprasidone 20 MG CAPSULE PO SCH ×2 (00:18→21:02)
[2019-01-27] MEDS: Piperacillin/Tazobactam 3.375 GM in 0.9 % Sodium Chloride Mini Bag 100 ML IVPB SCH ×3 (00:19→17:06)
[2019-01-27] MEDS: Divalproex (12 HR) 500 MG TABLET PO SCH ×3 (00:19→21:01)
[2019-01-27 05:43] LABS: Hematocrit 43.7 % (37.5-50.1); Hemoglobin 13.5 g/dL (12.9-16.9); Mean Corpuscular HGB Conc 30.9 g/dL (31.6-35.5); Mean Corpuscular Hemoglobin 29.1 pg (28.0-33.3); Mean Corpuscular Volume 94.2 fL (83.0-100.0); Mean Platelet Volume 11.4 fL (9.4-12.4); Platelet Count 115 K/mcL (140-400); Red Blood Count 4.64 M/mcL (4.19-5.50); Red Cell Distribution Width 17.5 % (11.5-14.5); White Blood Count 15.8 K/mcL (4.3-11.1)
[2019-01-27 06:07] LABS: BUN/Creatinine Ratio 15 (6-26); Blood Urea Nitrogen 12 mg/dL (8-23); Calcium 8.6 mg/dL (8.6-10.3); Carbon Dioxide 25 mEq/L (23-29); Chloride 104 mEq/L (98-107); Glucose 75 mg/dL (70-105); Osmolality,Calculated 284 (280-300); Sodium 138 mEq/L (136-145); eGFR For African Americans > 60 (> 60); eGFR For Non-African Americans > 60 (> 60)
[2019-01-27] MEDS: *HR* Enoxaparin 40 MG/0.4 ML SYRINGE SQ SCH (06:34)
--- NOTE | 2019-01-27 07:31 | Internal Med Progress Note ---
Hospitalist Progress Note - Encounter Date of Encounter: 01/27/19 Time of Encounter: 07:31 - Subjective Interval History: Patient lying comfortably in bed upon entering the room. Patient states she still has pain in the right lower extremity that radiates up towards his groin he denies that the pain is severe enough that he needs medication. Patient u nderstands that he is able to get medication if necessary. Patient denies fever, chills, nausea, vomiting, diarrhea, abdominal pain, chest pain, or shortness of breath. - Exam Vitals: Temp Pulse Resp BP Pulse Ox 98.6 F 88 17 154/82 90 01/27/19 06:40 01/27/19 06:40 01/27/19 06:40 01/27/19 06:40 01/27/19 06:40 Exam: General: AAOx3, good eye contact, not in distress and nontoxic but diaphoretic and uncomfortable appearing Head: Atraumatic, normocephalic. Face symmetric Eyes: EOMI, sclerae anicteric ENT: Mucous membranes moist. Normal oral mucosa. Trachea midline. Lungs: Normal breath sounds b/l, no wheezing or crackles Cardio: Normal S1 and S2, regular rate and rhythm, no murmurs. Abdomen: Soft, nontender, nondistended, obese Extremities: Warm, well perfused. DP pulses 2+ b/l. Bilateral pitting edema R>L Skin: erythema and warmth tracking RLE from ankle to posterior distal thigh with 1-2 cm increase in height from previous marking. Redness also noted over the knee cap. No crepitus noted on exam Neuro: Awake, fully oriented. Good memory, concentration, attention. Speech fluent. CN II-XII grossly intact. Strength 5/5 in b/l UE and LE - Summary of Assessment and Plan Summary of Assessment and Plan: Ketan Whitman is a 63 M w hx Klinefelter's Syndrome, AAA, DDD PORFIRIO, bipolar manic depressive disorder, and smoking, who p/w leg pain, erythema, SIRS 3/4, lactate 2.4, concerning for cellulitis causing severe sepsis. Cellulitis: R leg and thigh, CT w/o abscess or osteo, and exam without crepitus or pain out of proportion, and venous duplex negative - empiric zosyn continued with projected stop date of 02/04 - Vancomycin stopped due to unlikelihood of staph species as cause of cellulitis Severe sepsis: SIRS 3/4 (not tachypneic), suspected infection as above, lactate elevated to 2.4. Rec'd NS 2L bolus in ED. - BCx x2 pending, no growth as of now - repeat lactate ordered - fluid boluses prn - empiric abx as above AAA: interval growth from 3.7x3.8 in to 5.2x4.6 today - VascSurg saw patient, patient to follow up out patient for scheduling of endograft repair. Smoker: nicotine replacement offered, cessation advised PORFIRIO: cpap HTN: holding lisinopril 10 HLD: home statin Chronic pain: Tramadol as needed. holding flexeril 10 BPD: home depakote 500 bid PPx: lovenox Activity: ambulate FEN: regular, MIVF LR@125 Lines: PIV Consults: Roberto Code: Full Dispo: patient requires inpatient eval and management at this time. Anticipate 2-3 days. Will be homegoing - Time Spent with Patient Total time spent is greater than 50% in coordination of care (as documented) at patient's floor/unit and/or counseling patient: Internal Medicine: Result - Labs CBC & Chem 7: 01/27/19 05:02 01/27/19 05:02 Labs: Short CBC 01/27/19 Range/Units 05:02 WBC 15.8 H (4.3-11.1) K/mcL Hgb 13.5 (12.9-16.9) g/dL Hct 43.7 (37.5-50.1) % Plt Count 115 L (140-400) K/mcL BMP 01/27/19 05:02 Sodium 138 Potassium 4.0 Chloride 104 Carbon Dioxide 25 BUN 12 Creatinine 0.81 Glucose 75 Calcium 8.6 - ABG Interpretation ABG results: PT/INR, D-dimer 5488 ng/mLFEU (0-500) H 01/25/19 13:56 Consult Discharge Plan - Plan Referrals: Uriel Gutiérrez [Primary Care Provider] -
[2019-01-27] MEDS: Nicotine 21 MG PATCH.TD24 TD SCH (08:03)
[2019-01-27] MEDS ORDERED: 0.9 % Sodium Chloride Mini Bag 100 ML ONE (08:07)
[2019-01-27] MEDS: Sennosides/Docusate Sodium TABLET PO SCH ×2 (08:10→21:01)
[2019-01-27] MEDS: Nicotine 14 MG PATCH.TD24 TD SCH (10:24)
[2019-01-27] MEDS: Acetaminophen 325 MG TABLET PO PRN (10:29)
[2019-01-27] MEDS ORDERED: Aminoglycoside Consult 1 EACH MC ONE (14:29)
--- NOTE | 2019-01-27 19:09 | Vascular/End[facility]as Progress Note ---
Date of Encounter: 01/27/19 Time of Encounter: 18:45 - Assessment and plan (1) AAA (abdominal aortic aneurysm) without rupture Status: Acute The patient has a nonruptured, 5.2 cm infrarenal abdominal aortic aneurysm. He reports his aneurysm has increased in size. He denies abdominal, flank or back pain. His aneurysm appears to be of acceptable anatomy for endograft placement. He will follow up with vascular surgery as an outpatient for further surgical evaluation, planning and scheduling of his endograft repair. (2) Cellulitis Status: Acute The patient has a severe cellulitis. He has had minimal improvement. It is recommended that he continue with intravenous antibiotics until he has significant improvement. Patient will then be transitioned to a long course of oral antibiotics until his cellulitis resolved completely. Qualifiers: Site of cellulitis: extremity Site of cellulitis of extremity: lower extremity Laterality: right Qualified Code(s): L03.115 - Cellulitis of right lower limb - Subjective Interval history: The patient reports that his leg is turned better. He denies abdominal, flank or back pain. He denies fevers or chills. He denies chest pain or shortness of breath. - Physical Examination General: Present: Conversant, No Apparent Distress HEENT: Present: Pupils equal Cardiac: Present: Reg Rate and Rhythm, Normal S1 and S2 Lungs: Present: Normal Breath Sounds Neuro: Present: Alert and responsive, No focal deficits noted Vascular: Present: Normal capillary refill, Pulse, normal, Edema (1+ right lower extremity edema), Other Abdomen: Present: Soft Skin: Present: Other (Erythema noted to the level of the knee, tender to palpati on, no crepitance or fluctuance.) Results 01/30/19 05:34 01/30/19 05:34 Lab Results, Last 24 hours 01/27/19 01/27/19 05:02 05:02 WBC 15.8 H Hgb 13.5 Hct 43.7 Plt Count 115 L Sodium 138 Potassium 4.0 Chloride 104 Carbon Dioxide 25 BUN 12 Creatinine 0.81 Glucose 75 Calcium 8.6 Consult Discharge Plan - Plan Referrals: Uriel Gutiérrez [Primary Care Provider] - 02/01/19 3:15 pm Escobar Flores MD [Partnered Physician] - 02/28/19 1:00 pm (f/u in 1 month ) Prescriptions: Amoxicillin 875 mg PO BID #10 tablet Nicotine Patch [Nicoderm] 14 mg TD DAILY #30 patch.td24 Nicotine Gum [Nicorette gum] 2 mg BC Q2H PRN #30 gum PRN Reason: Nicotine Cravings
[2019-01-28] MEDS: Piperacillin/Tazobactam 3.375 GM in 0.9 % Sodium Chloride Mini Bag 100 ML IVPB SCH ×4 (00:07→23:39)
[2019-01-28 05:51] LABS: Hematocrit 43.2 % (37.5-50.1); Hemoglobin 13.2 g/dL (12.9-16.9); Mean Corpuscular HGB Conc 30.6 g/dL (31.6-35.5); Mean Corpuscular Hemoglobin 28.9 pg (28.0-33.3); Mean Corpuscular Volume 94.5 fL (83.0-100.0); Mean Platelet Volume 11.2 fL (9.4-12.4); Platelet Count 118 K/mcL (140-400); Red Blood Count 4.57 M/mcL (4.19-5.50); Red Cell Distribution Width 17.4 % (11.5-14.5); White Blood Count 9.7 K/mcL (4.3-11.1)
[2019-01-28] MEDS: *HR* Enoxaparin 40 MG/0.4 ML SYRINGE SQ SCH (06:07)
[2019-01-28 06:09] LABS: BUN/Creatinine Ratio 13 (6-26); Blood Urea Nitrogen 11 mg/dL (8-23); Carbon Dioxide 32 mEq/L (23-29); Chloride 104 mEq/L (98-107); Glucose 106 mg/dL (70-105); Osmolality,Calculated 294 (280-300); Potassium 4.2 mEq/L (3.5-5.1); Sodium 142 mEq/L (136-145); eGFR For African Americans > 60 (> 60); eGFR For Non-African Americans > 60 (> 60)
[2019-01-28] MEDS: Nicotine 14 MG PATCH.TD24 TD SCH (08:09)
[2019-01-28] MEDS: Divalproex (12 HR) 500 MG TABLET PO SCH ×2 (08:10→21:10)
[2019-01-28] MEDS: Sennosides/Docusate Sodium TABLET PO SCH ×2 (08:10→21:10)
--- NOTE | 2019-01-28 10:51 | Internal Med Progress Note ---
Hospitalist Progress Note - Encounter Date of Encounter: 01/28/19 Time of Encounter: 10:49 - Subjective Interval History: Patient sitting up in bed upon entering room eating breakfast. Patient states he is doing okay, but has not been able to ambulate as easily as before secondary to pain. Patient still complaining of pain radiating up to the groin from the right leg. Patient denies fever, chills, chest pain, shortness of breath, abdominal pain, nausea, vomiting, or diarrhea. - Exam Vitals: Temp Pulse Resp BP Pulse Ox 98.3 F 89 18 122/70 94 01/28/19 06:58 01/28/19 06:58 01/28/19 06:58 01/28/19 06:58 01/28/19 06:58 Exam: General: AAOx3, good eye contact, not in distress and nontoxic but diaphoretic and uncomfortable appearing Head: Atraumatic, normocephalic. Face symmetric Eyes: EOMI, sclerae anicteric ENT: Mucous membranes moist. Normal oral mucosa. Trachea midline. Lungs: Normal breath sounds b/l, no wheezing or crackles Cardio: Normal S1 and S2, regular rate and rhythm, no murmurs. Abdomen: Soft, nontender, nondistended, obese Extremities: Warm, well perfused. DP pulses 2+ b/l. Bilateral pitting edema R>L Skin: erythema and warmth tracking RLE from ankle to posterior distal thigh with some regression from past exam. Redness also noted over the knee cap. No crepitus noted on exam Neuro: Awake, fully oriented. Good memory, concentration, attention. Speech fluent. CN II-XII grossly intact. Strength 5/5 in b/l UE and LE - Summary of Assessment and Plan Summary of Assessment and Plan: Ketan Whitman is a 63 M w hx Klinefelter's Syndrome, AAA, DDD PORFIRIO, bipolar manic depressive disorder, and smoking, who p/w leg pain, erythema, SIRS 3/4, lactate 2.4, concerning for cellulitis causing severe sepsis. Clinically improving Cellulitis: R leg and thigh, CT w/o abscess or osteo, and exam without crepitus or pain out of proportion, and venous duplex negative - empiric zosyn continued with projected stop date of 02/04 - WBC normalized, latest LA of 1.3 Severe sepsis: Resolved. AAA: interval growth from 3.7x3.8 in '15 to 5.2x4.6 today - VascSurg saw patient, patient to follow up out patient for scheduling of endograft repair. Smoker: nicotine replacement offered, cessation advised PORFIRIO: cpap HTN: holding lisinopril 10 HLD: home statin Chronic pain: Tramadol as needed. holding flexeril 10 BPD: home depakote 500 bid PPx: lovenox Activity: ambulate FEN: regular Lines: PIV Consults: Roberto Code: Full Dispo: patient requires inpatient eval and management at this time. Anticipate 2-3 days. Will be homegoing - Time Spent with Patient Total time spent is greater than 50% in coordination of care (as documented) at patient's floor/unit and/or counseling patient: Internal Medicine: Result - Labs CBC & Chem 7: 01/28/19 04:30 01/28/19 04:30 Labs: Short CBC 01/28/19 Range/Units 04:30 WBC 9.7 (4.3-11.1) K/mcL Hgb 13.2 (12.9-16.9) g/dL Hct 43.2 (37.5-50.1) % Plt Count 118 L (140-400) K/mcL BMP 01/28/19 04:30 Sodium 142 Potassium 4.2 Chloride 104 Carbon Dioxide 32 H BUN 11 Creatinine 0.86 Glucose 106 H Calcium 9.0 - ABG Interpretation ABG results: PT/INR, D-dimer D-Dimer 5488 ng/mLFEU (0-500) H 01/25/19 13:56 Consult Discharge Plan - Plan Referrals: Uriel Gutiérrez [Primary Care Provider] - Escobar Flores MD [Partnered Physician] - (f/u in 1 month )
[2019-01-28] MEDS: Acetaminophen 325 MG TABLET PO PRN (15:12)
--- NOTE | 2019-01-28 18:34 | Vascular/End[facility]as Progress Note ---
Date of Encounter: 01/28/19 Time of Encounter: 16:55 - Assessment and plan (1) AAA (abdominal aortic aneurysm) without rupture Current Visit: Yes Status: Acute The patient underwent a CT angiogram which revealed a nonruptured, 5.2 cm infrarenal abdominal aortic aneurysm. His aneurysm appears to be of acceptable anatomy for endograft placement. The patient follow up with vascular surgery as an outpatient in approximately 4 weeks for further evaluation to discuss possible endograft repair. He was reminded seek immediate medical attention for any signs or symptoms of acute onset abdominal, flank or back pain. (2) Cellulitis Current Visit: Yes Status: Acute The patient continues to have significant erythema on the right lower extremity tissue cellulitis. There is no progression since admission. His white blood cell count is return to normal. He will continue with intravenous antibiotics with conversion to oral antibiotic when deemed appropriate by the hospitalist service. Qualifiers: Site of cellulitis: extremity Site of cellulitis of extremity: lower extremity Laterality: right Qualified Code(s): L03.115 - Cellulitis of right lower limb - Subjective Interval history: The patient reports his leg is feeling better. He denies any abdominal, flank or back pain. He denies chest pain or shortness of breath. He denies fevers or chills. Vital Signs, Last 4 Hours Temp Pulse Resp BP Pulse Ox 01/28/19 15:02 98.2 F 83 16 144/88 94 - Physical Examination General: Present: Conversant, No Apparent Distress HEENT: Present: Pupils equal Neck: Present: JVD Cardiac: Present: Reg Rate and Rhythm Lungs: Present: Normal Breath Sounds Neuro: Present: Alert and responsive, No focal deficits noted Vascular: Present: Normal capillary refill, Pulse, normal, Edema (Right lower extremity), Other (Erythema from the knee to the ankle, decreased tenderness in the right calf) Abdomen: Present: Soft, Non-tender Skin: Absent: Wound/ulcer(s) Results 01/28/19 04:30 01/28/19 04:30 Lab Results, Last 24 hours 01/28/19 01/28/19 04:30 04:30 WBC 9.7 Hgb 13.2 Hct 43.2 Plt Count 118 L Sodium 142 Potassium 4.2 Chloride 104 Carbon Dioxide 32 H BUN 11 Creatinine 0.86 Glucose 106 H Calcium 9.0 Consult Discharge Plan - Plan Referrals: Uriel Gutiérrez [Primary Care Provider] - Escobar Flores MD [Partnered Physician] - (f/u in 1 month )
[2019-01-28] MEDS: Ziprasidone 20 MG CAPSULE PO SCH (21:10)
[2019-01-29 04:38] LABS: Hematocrit 40.8 % (37.5-50.1); Hemoglobin 12.6 g/dL (12.9-16.9); Mean Corpuscular HGB Conc 30.9 g/dL (31.6-35.5); Mean Corpuscular Hemoglobin 28.8 pg (28.0-33.3); Mean Corpuscular Volume 93.2 fL (83.0-100.0); Mean Platelet Volume 10.5 fL (9.4-12.4); Platelet Count 133 K/mcL (140-400); Red Blood Count 4.38 M/mcL (4.19-5.50); Red Cell Distribution Width 17.3 % (11.5-14.5); White Blood Count 8.3 K/mcL (4.3-11.1)
[2019-01-29] MEDS: *HR* Enoxaparin 40 MG/0.4 ML SYRINGE SQ SCH (07:08)
[2019-01-29] MEDS: Nicotine 14 MG PATCH.TD24 TD SCH (10:02)
[2019-01-29] MEDS: Divalproex (12 HR) 500 MG TABLET PO SCH ×2 (10:02→20:12)
[2019-01-29] MEDS: Piperacillin/Tazobactam 3.375 GM in 0.9 % Sodium Chloride Mini Bag 100 ML IVPB SCH ×2 (10:04→16:44)
[2019-01-29] MEDS: Sennosides/Docusate Sodium TABLET PO SCH ×2 (10:04→20:14)
[2019-01-29] MEDS ORDERED: Furosemide 40 MG/4 ML VIAL IVP ONE (12:08)
--- NOTE | 2019-01-29 12:14 | Internal Med Progress Note ---
Hospitalist Progress Note - Encounter Date of Encounter: 01/29/19 Time of Encounter: 12:09 - Subjective Interval History: Still has discomfort, no better or worse. Appears more comfortable each day. However, leg is truly still quite erythematous. No N/V/D. - Exam Vitals: Temp Pulse Resp BP Pulse Ox 98.3 F 81 17 130/78 93 01/29/19 07:17 01/29/19 07:17 01/29/19 07:17 01/29/19 07:17 01/29/19 07:17 Exam: General: AAOx3, good eye contact Lungs: Normal breath sounds b/l, no wheezing or crackles Cardio: Normal S1 and S2, regular rate and rhythm Abdomen: Soft, nontender, nondistended, obese Extremities: Warm, well perfused. DP pulses 2+ b/l. Bilateral pitting edema R>L Skin: erythema and warmth tracking RLE from ankle to proximal sierra, relatively unchanged from previous, no crepitus Neuro: Awake, fully oriented. Speech fluent. - Summary of Assessment and Plan Summary of Assessment and Plan: Ketan Whitman is a 63 M w hx Klinefelter's Syndrome, AAA, DDD PORFIRIO, bipolar manic depressive disorder, and smoking, who p/w leg pain, rapidly spreading erythema although w/o crepitus, SIRS 3/4, lactate 2.4, concerning for cellulitis causing severe sepsis. Cellulitis: R leg and thigh, CT w/o abscess or osteo, exam always without crepitus, and venous duplex negative. Persistent erythematous rash - empiric zosyn continued with projected stop date of 02/04 - WBC normalized, latest LA of 1.3 Edema: complicating healing - lasix 40 iv x1 and reassess - compression hose or jason wrap in addition to elevation Severe sepsis: Resolved. AAA: interval growth from 3.7x3.8 in '15 to 5.2x4.6. Appreciate VascSurg eval; pt to follow up outpatient for scheduling of endograft repair. Smoker: nicotine replacement offered, cessation advised PORFIRIO: cpap HTN: holding lisinopril 10 HLD: home statin Chronic pain: Tramadol as needed. holding flexeril 10 BPD: home depakote 500 bid PPx: lovenox Activity: ambulate FEN: regular Lines: PIV Consults: VascSurg Code: Full Dispo: patient requires inpatient eval and management at this time. Anticipate 2-3 days. Will be homegoing Internal Medicine: Result - Labs CBC & Chem 7: 01/29/19 03:43 01/28/19 04:30 Labs: Short CBC 01/29/19 Range/Units 03:43 WBC 8.3 (4.3-11.1) K/mcL Hgb 12.6 L (12.9-16.9) g/dL Hct 40.8 (37.5-50.1) % Plt Count 133 L (140-400) K/mcL - ABG Interpretation ABG results: PT/INR, D-dimer D-Dimer 5488 ng/mLFEU (0-500) H 01/25/19 13:56 Consult Discharge Plan - Plan Referrals: Uriel Gutiérrez [Primary Care Provider] - Escobar Flores MD [Partnered Physician] - (f/u in 1 month )
[2019-01-29] MEDS: Ziprasidone 20 MG CAPSULE PO SCH (20:12)
[2019-01-30] MEDS: Piperacillin/Tazobactam 3.375 GM in 0.9 % Sodium Chloride Mini Bag 100 ML IVPB SCH ×3 (01:56→18:03)
[2019-01-30] MEDS: *HR* Enoxaparin 40 MG/0.4 ML SYRINGE SQ SCH (05:58)
[2019-01-30 06:23] LABS: Hematocrit 42.8 % (37.5-50.1); Hemoglobin 13.5 g/dL (12.9-16.9); Mean Corpuscular HGB Conc 31.5 g/dL (31.6-35.5); Mean Corpuscular Hemoglobin 29.1 pg (28.0-33.3); Mean Corpuscular Volume 92.2 fL (83.0-100.0); Mean Platelet Volume 10.4 fL (9.4-12.4); Platelet Count 161 K/mcL (140-400); Red Blood Count 4.64 M/mcL (4.19-5.50); Red Cell Distribution Width 17.1 % (11.5-14.5)
[2019-01-30 06:43] LABS: BUN/Creatinine Ratio 15 (6-26); Blood Urea Nitrogen 13 mg/dL (8-23); Calcium 9.2 mg/dL (8.6-10.3); Carbon Dioxide 32 mEq/L (23-29); Chloride 98 mEq/L (98-107); Glucose 117 mg/dL (70-105); Magnesium 1.9 mg/dL (1.6-2.6); Osmolality,Calculated 289 (280-300); Potassium 3.6 mEq/L (3.5-5.1); Sodium 139 mEq/L (136-145); eGFR For African Americans > 60 (> 60); eGFR For Non-African Americans > 60 (> 60)
[2019-01-30] MEDS ORDERED: Furosemide 40 MG/4 ML VIAL IVP ONE (07:29)
[2019-01-30] MEDS ORDERED: Furosemide 20 MG/2 ML VIAL IVP ONE (08:36)
[2019-01-30] MEDS: Sennosides/Docusate Sodium TABLET PO SCH ×2 (09:23→21:58)
[2019-01-30] MEDS: Nicotine 14 MG PATCH.TD24 TD SCH (09:24)
[2019-01-30] MEDS: Divalproex (12 HR) 500 MG TABLET PO SCH ×2 (09:24→21:56)
--- NOTE | 2019-01-30 10:36 | Internal Med Progress Note ---
Hospitalist Progress Note - Encounter Date of Encounter: 01/30/19 Time of Encounter: 10:33 - Subjective Interval History: Good UOP yesterday following lasix. Leg wrapped and today says it feels slightly less swollen and painful. No N/V/D. - Exam Vitals: Temp Pulse Resp BP Pulse Ox 98.5 F 77 16 119/75 94 01/30/19 10:10 01/30/19 10:10 01/30/19 10:10 01/30/19 10:10 01/30/19 10:10 Exam: General: AAOx3, good eye contact Lungs: Normal breath sounds b/l, no wheezing or crackles Cardio: Normal S1 and S2, regular rate and rhythm Abdomen: Soft, nontender, nondistended, obese Extremities: Warm, well perfused. DP pulses 2+ b/l. Bilateral pitting edema R>L Skin: erythema and warmth tracking RLE from ankle to proximal sierra, today is less swollen and erythema is not as intense Neuro: Awake, fully oriented. Speech fluent. - Summary of Assessment and Plan Summary of Assessment and Plan: Ketan Whitman is a 63 M w hx Klinefelter's Syndrome, AAA, DDD PORFIRIO, bipolar manic depressive disorder, and smoking, who p/w leg pain, rapidly spreading erythema although w/o crepitus, SIRS 3/4, lactate 2.4, concerning for cellulitis causing severe sepsis. Cellulitis: R leg and thigh, CT w/o abscess or osteo, exam always without c repitus, and venous duplex negative. Persistent erythematous rash finally improving today - empiric zosyn, will likely convert to PO abx if continued improvement tomorrow Edema: complicating healing, improving today as well - lasix 20 iv x1 and reassess - continue jason wrap and elevation Severe sepsis: resolved AAA: interval growth from 3.7x3.8 in '15 to 5.2x4.6. Appreciate VascSurg eval; pt to follow up outpatient for scheduling of endograft repair. Smoker: nicotine replacement offered, cessation advised PORFIRIO: cpap HTN: holding lisinopril 10 HLD: home statin Chronic pain: Tramadol as needed. holding flexeril 10 BPD: home depakote 500 bid PPx: lovenox Activity: ambulate FEN: regular Lines: PIV Consults: VascSurg Code: Full Dispo: patient requires inpatient eval and management at this time. Anticipate 2 days. Will be homegoing Internal Medicine: Result - Labs CBC & Chem 7: 01/30/19 05:34 01/30/19 05:34 Labs: Short CBC 01/30/19 Range/Units 05:34 WBC 8.0 (4.3-11.1) K/mcL Hgb 13.5 (12.9-16.9) g/dL Hct 42.8 (37.5-50.1) % Plt Count 161 (140-400) K/mcL BMP 01/30/19 05:34 Sodium 139 Potassium 3.6 Chloride 98 Carbon Dioxide 32 H BUN 13 Creatinine 0.84 Glucose 117 H Calcium 9.2 - ABG Interpretation ABG results: PT/INR, D-dimer D-Dimer 5488 ng/mLFEU (0-500) H 01/25/19 13:56 Consult Discharge Plan - Plan Referrals: Uriel Gutiérrez [Primary Care Provider] - Escobar Flores MD [Partnered Physician] - (f/u in 1 month )
[2019-01-30] MEDS: Ziprasidone 20 MG CAPSULE PO SCH (21:56)
[2019-01-30] MEDS: Melatonin 3 MG TABLET PO PRN (21:57)
[2019-01-31] MEDS: Piperacillin/Tazobactam 3.375 GM in 0.9 % Sodium Chloride Mini Bag 100 ML IVPB SCH ×2 (00:45→07:40)
[2019-01-31] MEDS: *HR* Enoxaparin 40 MG/0.4 ML SYRINGE SQ SCH (06:03)
[2019-01-31] MEDS ORDERED: Piperacillin/Tazobactam 3.375 GM VIAL ONE (07:36)
[2019-01-31] MEDS: Divalproex (12 HR) 500 MG TABLET PO SCH (07:42)
[2019-01-31] MEDS: Sennosides/Docusate Sodium TABLET PO SCH (07:42)
[2019-01-31] MEDS: Nicotine 14 MG PATCH.TD24 TD SCH (07:42)
--- NOTE | 2019-01-31 07:57 | Discharge Summary ---
- NOTES TO OUTPATIENT PROVIDER Notes to Outpatient Provider: Cellulitis of the LLE treated with IV abx for 6 days. Switched to Augmentin PO for 4 days will finish on 02/04. Date of Encounter: 01/31/19 Time of Encounter: 07:57 - Discharge Diagnosis (1) Sepsis Priority: Primary Status: Acute Qualifiers: Sepsis type: sepsis due to unspecified organism Qualified Code(s): A41.9 - Sepsis, unspecified organism (2) Cellulitis Priority: Secondary Status: Acute Qualifiers: Site of cellulitis: extremity Site of cellulitis of extremity: lower extremity Laterality: right Qualified Code(s): L03.115 - Cellulitis of right lower limb (3) Lymphangitis Priority: Secondary Status: Acute (4) AAA (abdominal aortic aneurysm) without rupture Priority: Secondary Status: Acute (5) Abdominal pain Priority: Secondary Status: Acute Qualifiers: Abdominal location: generalized Qualified Code(s): R10.84 - Generalized abdominal pain Hospital course: Mr. Whitman is a 63 year old male with a past medical history of Klinefelter's syndrome, AAA, bipolar disorder, chronic lymphedema, and smoking. Patient presented to the ED complaining of right foot pain radiating up into his groin. Patient had been wearing his compression stockings for chronic swelling of his legs and had not taken them off for a few days. After removing the stockings patient noticed that his right leg had become red and more swollen up to the knee. In the ED patient had a temperature of 102, tachycardia, and a lactate of 2.4. CT scan of the right lower extremity was performed and showed soft tissue swelling and edema but no fluid collections. Blood cultures were drawn and patient was started on Vanco and Zosyn with a 2 L normal saline bolus for suspected severe sepsis. CT of the abdomen was performed which showed a AAA of 5.2 x 4.6 cm. patient has been followed for this in the past and vascular s urgery was consulted, but patient plans to see his surgeon at [place]. Due to lack of purulence vancomycin was discontinued on 01/28 after patient started to have symptomatic and lab improvement. Patient continued to improve with Zosyn. Compression wrapping was applied and redness/warmth was monitored over the course of stay. On 01/30 blood cultures were final with no growth and with patient's symptomatic improvement the decision to discontinue Zosyn on 7:15 for patient discharge with continued amoxicillin 875 mg by mouth twice a day for 5 days with outpatient follow-up in 1 week. Discharge discussed with: patient - Time Spent with Patient Total time spent providing and/or coordinating discharge services: Time spent: Greater than 30 minutes - Discharge Medications Prescriptions: New Amoxicillin 875 mg PO BID #10 tablet Nicotine Patch [Nicoderm] 14 mg TD DAILY #30 patch.td24 Nicotine Gum [Nicorette gum] 2 mg BC Q2H PRN #30 gum PRN Reason: Nicotine Cravings Continued Simvastatin [Zocor] 40 mg PO HS Divalproex (12 HR) [Depakote (12 HR)] 500 mg PO BID Cyclobenzaprine [Flexeril] 10 mg PO HS PRN PRN Reason: Muscle Spasm Lisinopril [Zestril] 10 mg PO DAILY Testosterone Cypionate [Depo-Testosterone] 60 mg IM Q14D Melatonin 5 mg Tablet 10 mg PO HS Ziprasidone HCl [Geodon] 20 mg PO HS Home Medications: Cyclobenzaprine [Flexeril] 10 mg PO HS PRN 01/25/19 [History] Divalproex (12 HR) [Depakote (12 HR)] 500 mg PO BID 01/25/19 [History] Lisinopril [Zestril] 10 mg PO DAILY 01/25/19 [History] Melatonin 5 mg Tablet 10 mg PO HS 01/25/19 [History] Simvastatin [Zocor] 40 mg PO HS 01/25/19 [History] Testosterone Cypionate [Depo-Testosterone] 60 mg IM Q14D 01/25/19 [History] Ziprasidone HCl [Geodon] 20 mg PO HS 01/25/19 [History] Amoxicillin 875 mg PO BID #10 tablet 01/31/19 [Rx] Nicotine Gum [Nicorette gum] 2 mg BC Q2H PRN #30 gum 01/31/19 [Rx] Nicotine Patch [Nicoderm] 14 mg TD DAILY #30 patch.td24 01/31/19 [Rx] Allergies/Adverse Reactions: Allergy/AdvReac Type Severity Reaction Status Date / Time nicotine [From Nicoderm CQ] AdvReac See Verified 01/25/19 13:42 Comments oxycodone [From Percocet] AdvReac Hives Verified 01/25/19 13:42 Date of admission: 01/25/19 19:01 Primary care physician: Uriel Gutiérrez Consults: 01/25/19 17:45 Consult to Vascular Surgery [CONS] Routine Consulting Provider: [facility] Reason for Consult: Known hx of AAA, which on CT today obtained for abd pain related to thigh cellulitis is now increased from 3x3 to 5.2 x 4.6. Call Completed: No Discharging clinician: Rodolfo Pedroza - Constitutional Vitals: Temp Pulse Resp BP Pulse Ox 98.8 F 78 15 127/77 96 01/31/19 07:28 01/31/19 07:28 01/31/19 07:28 01/31/19 07:28 01/31/19 07:28 General appearance: Present: A&O X 3, pleasant, no acute distress Exam: General: AAOx3, good eye contact Lungs: Normal breath sounds b/l, no wheezing or crackles Cardio: Normal S1 and S2, regular rate and rhythm Abdomen: Soft, nontender, nondistended, obese Extremities: Warm, well perfused. DP pulses 2+ b/l. Bilateral pitting edema R>L Skin: RLE with leg wrapped. After removing wrap RLE with some redness at the calf, but much improved. Neuro: Awake, fully oriented. Speech fluent. - Patient Status Disposition: Home, Self-Care Condition: Good - Discharge Instructions Follow Up With: Uriel Gutiérrez [Primary Care Provider] - Escobar Flores MD [Partnered Physician] - (f/u in 1 month ) - Diet and Activity Activity: increase activity as tolerated Diet: regular diet
[2019-01-31 11:00] VITALS: BP 109/63
== END 2019-01-31 14:30 | disposition home or self-care (01) | DRG 872 ==
LOC: EMEROOARM 13:29 → 3ANU 13:29 → SUATTDRO 18:30 → 3ANU 18:43 → SUATTDRO 19:01
PROVIDERS: ADMIT Internal Medicine; ATTEND Internal Medicine

== ENCOUNTER 2020-02-24 12:52 | Inpatient (IN) ==
[2020-02-24] MEDS ORDERED: Piperacillin/Tazobactam 3.375 GM in 0.9 % Sodium Chloride Mini Bag 100 ML IVPB ONE (13:11)
[2020-02-24] MEDS ORDERED: 0.9 % Sodium Chloride 1,000 ML IVC ONE (13:12)
[2020-02-24 13:34] LABS: Basophils % 0.1 %; Eosinophils % 0.1 %; Hematocrit 52.9 % (37.5-50.1); Hemoglobin 16.7 g/dL (12.9-16.9); Immature Granulocytes % 0.7 % (0-4); Lymphocytes # 0.7 K/mcL (0.6-4.6); Lymphocytes % 4.4 %; Mean Corpuscular HGB Conc 31.6 g/dL (31.6-35.5); Mean Corpuscular Hemoglobin 29.7 pg (28.0-33.3); Mean Platelet Volume 10.5 fL (9.4-12.4); Monocytes # 0.7 K/mcL (0.0-1.3); Monocytes % 4.4 %; Platelet Count 135 K/mcL (140-400); Red Blood Count 5.63 M/mcL (4.19-5.50); Red Cell Distribution Width 16.6 % (11.5-14.5); Segmented Neutrophils % 90.3 %; White Blood Count 14.9 K/mcL (4.3-11.1)
[2020-02-24 13:36] LABS: Neutrophils # 13.5 K/mcL (1.6-8.9)
[2020-02-24 13:52] LABS: Alanine Aminotransferase 9 Units/L (7-52); Albumin 4.2 g/dL (3.5-5.7); Albumin/Globulin Ratio 1.4 (1.1-2.2); Alkaline Phosphatase 43 Units/L (34-104); Aspartate Amino Transferase 13 Units/L (13-39); BUN/Creatinine Ratio 15 (6-26); Bilirubin,Total 0.8 mg/dL (0.3-1.0); Blood Urea Nitrogen 12 mg/dL (8-23); C-Reactive Protein 15 mg/L (Less than 10); Calcium 9.3 mg/dL (8.6-10.3); Carbon Dioxide 28 mEq/L (23-29); Chloride 98 mEq/L (98-107); Glucose 141 mg/dL (70-105); Osmolality,Calculated 284 (280-300); Potassium 4.1 mEq/L (3.5-5.1); Sodium 136 mEq/L (136-145); Total Protein 7.2 g/dL (6.4-8.9); eGFR For African Americans > 60 (> 60); eGFR For Non-African Americans > 60 (> 60)
[2020-02-24 13:59] LABS: Troponin I < 0.03 ng/mL (< 0.04)
[2020-02-24] MEDS ORDERED: Naloxone 0.4 MG/ML INJ IVP PRN (14:41)
[2020-02-24] MEDS ORDERED: tiZANidine 4 MG TABLET PO PRN (14:42)
[2020-02-24] MEDS ORDERED: Vancomycin 500 MG in 0.9 % Sodium Chloride Mini Bag 100 ML IVPB ONE (16:30)
[2020-02-24] MEDS: Divalproex (24 HR) 500 MG TABLET PO SCH (17:32)
[2020-02-24] MEDS: Ziprasidone 20 MG CAPSULE PO SCH (18:48)
[2020-02-24] MEDS: Piperacillin/Tazobactam 3.375 GM in 0.9 % Sodium Chloride Mini Bag 100 ML IVPB SCH (21:19)
[2020-02-25 05:33] LABS: Eosinophils % 0.1 %; Mean Corpuscular Volume 94.9 fL (83.0-100.0); Monocytes % 3.6 %
[2020-02-25 05:35] LABS: Basophils % 0.2 %; Hematocrit 46.4 % (37.5-50.1); Hemoglobin 14.3 g/dL (12.9-16.9); Immature Granulocytes % 0.5 % (0-4); Immature Platelets 6.3 % (1.1-6.1); Lymphocytes # 1.4 K/mcL (0.6-4.6); Lymphocytes % 8.7 %; Mean Corpuscular HGB Conc 30.8 g/dL (31.6-35.5); Mean Corpuscular Hemoglobin 29.2 pg (28.0-33.3); Mean Platelet Volume 10.6 fL (9.4-12.4); Monocytes # 0.6 K/mcL (0.0-1.3); Neutrophils # 14.1 K/mcL (1.6-8.9); Platelet Count 109 K/mcL (140-400); Red Blood Count 4.89 M/mcL (4.19-5.50); Segmented Neutrophils % 86.9 %; White Blood Count 16.2 K/mcL (4.3-11.1)
[2020-02-25] MEDS: Piperacillin/Tazobactam 3.375 GM in 0.9 % Sodium Chloride Mini Bag 100 ML IVPB SCH ×3 (05:49→20:31)
[2020-02-25] MEDS: Vancomycin 1,500 MG/265 ML IV.SOLN IVPB SCH ×2 (05:50→18:11)
[2020-02-25 05:56] LABS: BUN/Creatinine Ratio 18 (6-26); Blood Urea Nitrogen 17 mg/dL (8-23); Calcium 8.5 mg/dL (8.6-10.3); Carbon Dioxide 30 mEq/L (23-29); Chloride 99 mEq/L (98-107); Glucose 100 mg/dL (70-105); Osmolality,Calculated 282 (280-300); Potassium 4.1 mEq/L (3.5-5.1); Sodium 135 mEq/L (136-145); eGFR For African Americans > 60 (> 60); eGFR For Non-African Americans > 60 (> 60)
[2020-02-25] MEDS ORDERED: 0.9 % Sodium Chloride 1,000 ML IVC SCH (07:30)
[2020-02-25] MEDS ORDERED: EPA PO SCH (09:00)
[2020-02-25] MEDS ORDERED: OMEGA PO SCH (09:00)
[2020-02-25] MEDS ORDERED: FISH OIL PO SCH (09:00)
[2020-02-25] MEDS ORDERED: DHA PO SCH (09:00)
[2020-02-25] MEDS: Cholecalciferol (D-3) 1,000 UNIT (25MCG) TABLET PO SCH (09:12)
[2020-02-25] MEDS: Divalproex (24 HR) 500 MG TABLET PO SCH ×2 (09:12→17:40)
[2020-02-25] MEDS: lisinopriL 10 MG TABLET PO SCH (09:14)
[2020-02-25] MEDS: Divalproex (24 HR) 250 MG TABLET PO SCH (12:49)
[2020-02-25] MEDS: Ziprasidone 20 MG CAPSULE PO SCH (17:39)
[2020-02-26 05:14] LABS: Eosinophils % 0.6 %
[2020-02-26 05:16] LABS: Basophils % 0.2 %; Eosinophils # 0.1 K/mcL (0.0-0.6); Hematocrit 42.2 % (37.5-50.1); Immature Granulocytes % 0.4 % (0-4); Immature Platelets 6.8 % (1.1-6.1); Lymphocytes # 1.7 K/mcL (0.6-4.6); Lymphocytes % 14.1 %; Mean Corpuscular HGB Conc 30.8 g/dL (31.6-35.5); Mean Corpuscular Hemoglobin 29.3 pg (28.0-33.3); Mean Corpuscular Volume 95.3 fL (83.0-100.0); Mean Platelet Volume 10.7 fL (9.4-12.4); Monocytes # 0.7 K/mcL (0.0-1.3); Monocytes % 5.9 %; Neutrophils # 9.5 K/mcL (1.6-8.9); Red Blood Count 4.43 M/mcL (4.19-5.50); Red Cell Distribution Width 16.8 % (11.5-14.5); Segmented Neutrophils % 78.8 %; White Blood Count 12.1 K/mcL (4.3-11.1)
[2020-02-26 05:24] LABS: Platelet Count 95 K/mcL (140-400)
[2020-02-26 05:29] LABS: BUN/Creatinine Ratio 22 (6-26); Blood Urea Nitrogen 14 mg/dL (8-23); Carbon Dioxide 25 mEq/L (23-29); Chloride 100 mEq/L (98-107); Glucose 107 mg/dL (70-105); Osmolality,Calculated 275 (280-300); Potassium 3.4 mEq/L (3.5-5.1); Sodium 132 mEq/L (136-145); eGFR For African Americans > 60 (> 60); eGFR For Non-African Americans > 60 (> 60)
[2020-02-26] MEDS: Piperacillin/Tazobactam 3.375 GM in 0.9 % Sodium Chloride Mini Bag 100 ML IVPB SCH ×3 (05:51→21:03)
[2020-02-26] MEDS: Vancomycin 1,500 MG/265 ML IV.SOLN IVPB SCH ×2 (05:52→17:17)
[2020-02-26] MEDS: Cholecalciferol (D-3) 1,000 UNIT (25MCG) TABLET PO SCH (08:01)
[2020-02-26] MEDS: Divalproex (24 HR) 500 MG TABLET PO SCH ×2 (08:02→17:07)
[2020-02-26] MEDS: lisinopriL 10 MG TABLET PO SCH (08:03)
[2020-02-26] MEDS ORDERED: Isovue-370 500 ML BOTTLE IVP ONE (08:28)
[2020-02-26] MEDS: Divalproex (24 HR) 250 MG TABLET PO SCH (11:24)
[2020-02-26] MEDS: *HR* Heparin 5,000 UNIT/ML VIAL SQ SCH ×2 (14:35→21:03)
[2020-02-26] MEDS: Ziprasidone 20 MG CAPSULE PO SCH (17:07)
[2020-02-27] MEDS: *HR* Heparin 5,000 UNIT/ML VIAL SQ SCH ×3 (06:01→21:33)
[2020-02-27] MEDS: Piperacillin/Tazobactam 3.375 GM in 0.9 % Sodium Chloride Mini Bag 100 ML IVPB SCH ×3 (06:02→21:32)
[2020-02-27] MEDS: Vancomycin 1,500 MG/265 ML IV.SOLN IVPB SCH ×2 (06:02→17:27)
[2020-02-27 06:47] LABS: Basophils % 0.2 %; Eosinophils % 0.7 %
[2020-02-27 06:48] LABS: Eosinophils # 0.1 K/mcL (0.0-0.6); Hematocrit 39.4 % (37.5-50.1); Hemoglobin 12.6 g/dL (12.9-16.9); Immature Granulocytes % 0.2 % (0-4); Immature Platelets 10.3 % (1.1-6.1); Lymphocytes % 24.2 %; Mean Corpuscular Hemoglobin 30.6 pg (28.0-33.3); Mean Corpuscular Volume 95.6 fL (83.0-100.0); Monocytes # 0.7 K/mcL (0.0-1.3); Monocytes % 8.3 %; Neutrophils # 5.4 K/mcL (1.6-8.9); Red Blood Count 4.12 M/mcL (4.19-5.50); Red Cell Distribution Width 16.4 % (11.5-14.5); Segmented Neutrophils % 66.4 %; White Blood Count 8.2 K/mcL (4.3-11.1)
[2020-02-27 06:49] LABS: Platelet Count 97 K/mcL (140-400)
[2020-02-27 07:09] LABS: BUN/Creatinine Ratio 19 (6-26); Blood Urea Nitrogen 11 mg/dL (8-23); Carbon Dioxide 30 mEq/L (23-29); Chloride 98 mEq/L (98-107); Glucose 127 mg/dL (70-105); Osmolality,Calculated 277 (280-300); Potassium 3.5 mEq/L (3.5-5.1); Sodium 133 mEq/L (136-145); eGFR For African Americans > 60 (> 60); eGFR For Non-African Americans > 60 (> 60)
[2020-02-27] MEDS: lisinopriL 10 MG TABLET PO SCH (08:34)
[2020-02-27] MEDS: Cholecalciferol (D-3) 1,000 UNIT (25MCG) TABLET PO SCH (08:34)
[2020-02-27] MEDS: Divalproex (24 HR) 500 MG TABLET PO SCH ×2 (08:37→17:24)
[2020-02-27] MEDS: Nicotine 7 MG PATCH.TD24 TD SCH (10:51)
[2020-02-27] MEDS: Divalproex (24 HR) 250 MG TABLET PO SCH (11:46)
[2020-02-27] MEDS: polyethylene glycoL 3350 17 GM POWD.PACK PO SCH (15:06)
[2020-02-27] MEDS: Ziprasidone 20 MG CAPSULE PO SCH (17:24)
[2020-02-28] MEDS: Piperacillin/Tazobactam 3.375 GM in 0.9 % Sodium Chloride Mini Bag 100 ML IVPB SCH ×3 (05:19→23:30)
[2020-02-28] MEDS: Vancomycin 1,500 MG/265 ML IV.SOLN IVPB SCH ×2 (05:20→18:50)
[2020-02-28] MEDS: *HR* Heparin 5,000 UNIT/ML VIAL SQ SCH ×3 (05:20→21:13)
[2020-02-28 08:37] LABS: Immature Granulocytes % 0.3 % (0-4)
[2020-02-28 08:39] LABS: Immature Platelets 7.8 % (1.1-6.1)
[2020-02-28 08:45] LABS: Basophils % 0.5 %; Eosinophils # 0.2 K/mcL (0.0-0.6); Eosinophils % 2.7 %; Hematocrit 41.5 % (37.5-50.1); Lymphocytes # 1.8 K/mcL (0.6-4.6); Lymphocytes % 29.8 %; Mean Corpuscular HGB Conc 31.3 g/dL (31.6-35.5); Mean Corpuscular Hemoglobin 29.9 pg (28.0-33.3); Mean Corpuscular Volume 95.4 fL (83.0-100.0); Mean Platelet Volume 11.3 fL (9.4-12.4); Monocytes # 0.6 K/mcL (0.0-1.3); Monocytes % 9.3 %; Neutrophils # 3.4 K/mcL (1.6-8.9); Platelet Count 129 K/mcL (140-400); Red Blood Count 4.35 M/mcL (4.19-5.50); Red Cell Distribution Width 16.4 % (11.5-14.5); Segmented Neutrophils % 57.4 %; White Blood Count 5.9 K/mcL (4.3-11.1)
[2020-02-28 08:56] LABS: BUN/Creatinine Ratio 14 (6-26); Blood Urea Nitrogen 9 mg/dL (8-23); Carbon Dioxide 33 mEq/L (23-29); Chloride 99 mEq/L (98-107); Glucose 97 mg/dL (70-105); Osmolality,Calculated 287 (280-300); Sodium 139 mEq/L (136-145); eGFR For African Americans > 60 (> 60); eGFR For Non-African Americans > 60 (> 60)
[2020-02-28] MEDS: lisinopriL 10 MG TABLET PO SCH (09:00)
[2020-02-28] MEDS: Cholecalciferol (D-3) 1,000 UNIT (25MCG) TABLET PO SCH (09:01)
[2020-02-28] MEDS: Divalproex (24 HR) 500 MG TABLET PO SCH ×2 (09:03→16:54)
[2020-02-28] MEDS: Nicotine 7 MG PATCH.TD24 TD SCH (09:03)
[2020-02-28] MEDS: polyethylene glycoL 3350 17 GM POWD.PACK PO SCH (09:04)
[2020-02-28 09:09] LABS: Large Platelets Present (Not Present); Platelet Estimate Normal (Normal)
[2020-02-28] MEDS: Divalproex (24 HR) 250 MG TABLET PO SCH (12:50)
[2020-02-28] MEDS: Ziprasidone 20 MG CAPSULE PO SCH (16:54)
[2020-02-29] MEDS: Vancomycin 1,500 MG/265 ML IV.SOLN IVPB SCH ×2 (05:56→18:35)
[2020-02-29] MEDS: *HR* Heparin 5,000 UNIT/ML VIAL SQ SCH ×3 (05:57→20:17)
[2020-02-29] MEDS ORDERED: Furosemide 40 MG/4 ML VIAL IVP ONE ×2 (09:00→09:46)
[2020-02-29] MEDS: polyethylene glycoL 3350 17 GM POWD.PACK PO SCH (09:50)
[2020-02-29] MEDS: lisinopriL 10 MG TABLET PO SCH (09:50)
[2020-02-29] MEDS: Nicotine 7 MG PATCH.TD24 TD SCH (09:51)
[2020-02-29] MEDS: Divalproex (24 HR) 500 MG TABLET PO SCH ×2 (09:51→18:35)
[2020-02-29] MEDS: Piperacillin/Tazobactam 3.375 GM in 0.9 % Sodium Chloride Mini Bag 100 ML IVPB SCH ×2 (09:54→15:27)
[2020-02-29] MEDS: Cholecalciferol (D-3) 1,000 UNIT (25MCG) TABLET PO SCH (09:54)
[2020-02-29] MEDS: Divalproex (24 HR) 250 MG TABLET PO SCH (13:18)
[2020-02-29] MEDS: Ziprasidone 20 MG CAPSULE PO SCH (18:35)
[2020-03-01] MEDS: Piperacillin/Tazobactam 3.375 GM in 0.9 % Sodium Chloride Mini Bag 100 ML IVPB SCH ×2 (01:05→13:18)
[2020-03-01] MEDS: Vancomycin 1,500 MG/265 ML IV.SOLN IVPB SCH ×2 (05:31→17:58)
[2020-03-01] MEDS: *HR* Heparin 5,000 UNIT/ML VIAL SQ SCH ×3 (05:31→20:47)
[2020-03-01 06:28] LABS: BUN/Creatinine Ratio 16 (6-26); Blood Urea Nitrogen 11 mg/dL (8-23); Calcium 9.3 mg/dL (8.6-10.3); Carbon Dioxide 37 mEq/L (23-29); Chloride 96 mEq/L (98-107); Glucose 110 mg/dL (70-105); Osmolality,Calculated 284 (280-300); Potassium 4.5 mEq/L (3.5-5.1); Sodium 137 mEq/L (136-145); eGFR For African Americans > 60 (> 60); eGFR For Non-African Americans > 60 (> 60)
[2020-03-01] MEDS: Furosemide 40 MG/4 ML VIAL IVP SCH ×2 (09:22→17:57)
[2020-03-01] MEDS: Divalproex (24 HR) 500 MG TABLET PO SCH ×2 (09:22→17:57)
[2020-03-01] MEDS: Cefepime HCl 2,000 MG in Water for inj. (sterile) 20 ML IVP SCH ×2 (09:23→17:57)
[2020-03-01] MEDS: polyethylene glycoL 3350 17 GM POWD.PACK PO SCH (09:24)
[2020-03-01] MEDS: Nicotine 7 MG PATCH.TD24 TD SCH (09:24)
[2020-03-01] MEDS: Cholecalciferol (D-3) 1,000 UNIT (25MCG) TABLET PO SCH (09:24)
[2020-03-01] MEDS: lisinopriL 10 MG TABLET PO SCH (09:24)
[2020-03-01] MEDS: Divalproex (24 HR) 250 MG TABLET PO SCH (13:12)
[2020-03-01] MEDS ORDERED: NON-FORMULARY MEDICATION 1 EACH EACH (Alendronate Sodium [Fosamax] 70 MG) PO SCH (14:42)
[2020-03-01] MEDS: Ziprasidone 20 MG CAPSULE PO SCH (17:57)
[2020-03-02] MEDS: *HR* Heparin 5,000 UNIT/ML VIAL SQ SCH ×3 (06:01→20:45)
[2020-03-02] MEDS: Cefepime HCl 2,000 MG in Water for inj. (sterile) 20 ML IVP SCH (06:01)
[2020-03-02] MEDS: Vancomycin 1,500 MG/265 ML IV.SOLN IVPB SCH (06:02)
[2020-03-02 06:21] LABS: BUN/Creatinine Ratio 20 (6-26); Blood Urea Nitrogen 17 mg/dL (8-23); Calcium 9.3 mg/dL (8.6-10.3); Carbon Dioxide 36 mEq/L (23-29); Chloride 93 mEq/L (98-107); Glucose 105 mg/dL (70-105); Osmolality,Calculated 286 (280-300); Sodium 137 mEq/L (136-145); eGFR For African Americans > 60 (> 60); eGFR For Non-African Americans > 60 (> 60)
[2020-03-02] MEDS: Divalproex (24 HR) 500 MG TABLET PO SCH ×2 (09:49→17:54)
[2020-03-02] MEDS: Cholecalciferol (D-3) 1,000 UNIT (25MCG) TABLET PO SCH (09:51)
[2020-03-02] MEDS: lisinopriL 10 MG TABLET PO SCH (09:52)
[2020-03-02] MEDS: polyethylene glycoL 3350 17 GM POWD.PACK PO SCH (09:52)
[2020-03-02] MEDS: Nicotine 7 MG PATCH.TD24 TD SCH (09:52)
[2020-03-02] MEDS: Divalproex (24 HR) 250 MG TABLET PO SCH (13:06)
[2020-03-02] MEDS: Furosemide 40 MG/4 ML VIAL IVP SCH ×2 (13:07→20:46)
[2020-03-02] MEDS ORDERED: Cefepime HCl 2,000 MG in Water for inj. (sterile) 20 ML IVP SCH (14:00)
[2020-03-02] MEDS: Piperacillin/Tazobactam 3.375 GM in 0.9 % Sodium Chloride Mini Bag 100 ML IVPB SCH ×2 (15:53→23:16)
[2020-03-02] MEDS: Ziprasidone 20 MG CAPSULE PO SCH (17:54)
[2020-03-02] MEDS ORDERED: Vancomycin 1,500 MG/265 ML IV.SOLN IVPB SCH (18:00)
[2020-03-02] MEDS: Vancomycin 1,250 MG/262.5 ML IV.SOLN IVPB SCH (21:12)
[2020-03-03] MEDS: *HR* Heparin 5,000 UNIT/ML VIAL SQ SCH (06:45)
[2020-03-03] MEDS ORDERED: Piperacillin/Tazobactam 3.375 GM VIAL ONE (07:55)
[2020-03-03] MEDS: Furosemide 40 MG/4 ML VIAL IVP SCH (08:12)
[2020-03-03] MEDS: Cholecalciferol (D-3) 1,000 UNIT (25MCG) TABLET PO SCH (08:17)
[2020-03-03] MEDS: lisinopriL 10 MG TABLET PO SCH (08:18)
[2020-03-03] MEDS: Divalproex (24 HR) 500 MG TABLET PO SCH (08:19)
[2020-03-03] MEDS: Piperacillin/Tazobactam 3.375 GM in 0.9 % Sodium Chloride Mini Bag 100 ML IVPB SCH (08:34)
[2020-03-03] MEDS: Vancomycin 1,250 MG/262.5 ML IV.SOLN IVPB SCH (08:34)
[2020-03-03] MEDS: polyethylene glycoL 3350 17 GM POWD.PACK PO SCH (08:36)
[2020-03-03] MEDS: Nicotine 7 MG PATCH.TD24 TD SCH (08:36)
[2020-03-03 10:46] LABS: BUN/Creatinine Ratio 19 (6-26); Blood Urea Nitrogen 17 mg/dL (8-23); Carbon Dioxide 33 mEq/L (23-29); Chloride 95 mEq/L (98-107); Glucose 171 mg/dL (70-105); Osmolality,Calculated 290 (280-300); Potassium 3.9 mEq/L (3.5-5.1); Sodium 137 mEq/L (136-145); eGFR For African Americans > 60 (> 60); eGFR For Non-African Americans > 60 (> 60)
[2020-03-03 11:08] VITALS: BP 111/71
[2020-03-03] MEDS: Divalproex (24 HR) 250 MG TABLET PO SCH (12:22)
== END 2020-03-03 13:39 | disposition home or self-care (01) | DRG 872 ==
LOC: EMEROOARM 12:52 → 3ANU 12:52 → SUATTDRO 14:26 → 3ANU 17:00
PROVIDERS: ADMIT Internal Medicine; ATTEND Student in an Organized Health Care Education/Training Program